=== PATIENT | male | born 1980 | race African-American/Black ===

== ENCOUNTER 2016-12-17 16:23 | Emergency (ER) | payer OTHER ==
[~2016-12-17] VITALS: Ht 182.9 cm; Wt 91.6 kg
--- NOTE | 2016-12-17 17:09 | ED GI/GU/ABDOMINAL COMPLAINT ---
History of Present Illness General Chief Complaint: General Adult Stated Complaint: ?SICKLE CELL CRISIS Source: patient, old records Exam Limitations: no limitations Vital Signs & Intake/Output Vital Signs & Intake/Output Vital Signs Date Time Temp Pulse Resp B/P B/P Pulse O2 O2 Flow FiO2 Mean Ox Delivery Rate 12/17 2110 88 22 114/58 98 Room Air 12/17 1859 88 18 124/73 98 Room Air 12/17 1634 98.8 104 18 129/75 97 Room Air Allergies Coded Allergies: No Known Allergies (12/17/16) Reconcile Medications Oxycodone HCl (Oxycodone HCl ER) 10 MG TAB.ER.12H 1 TAB PO BID PAIN (Reported ) Oxycodone HCl 30 MG TABLET 1 TAB PO BID sickle cell Triage Note: PT STATES HE IS HAVING A SICKLE CELL CRISIS WITH BACK PAIN AND STATES HE IS HAVING ABD PAIN THINKS HIS SPLEEN IS ENLARGED. PT STATES HE RAN OUT OF HIS PAIN MEDS AND HE IS USING A SAALON PATCH. Triage Nurses Notes Reviewed? yes Onset: Gradual Duration: minute(s): (`), day(s): (3-4), constant Timing: recent history Quality/Severity: aching, fullness, moderate, sharpness Severity Numbers: 9 Location: left flank, left lower quadrant, left upper quadrant Radiation: no radiation Activities at Onset: none Prior Abdominal Problems: similar symptoms No Modifying Factors: none Associated Symptoms: denies HPI: Is a 36-year-old male with history of sickle cell disease, diabetes hypertension high cholesterol recently moved here from [place] presents complaining of left flank and left-sided abdominal pain for the past 3-4 days. The patient states that this feels similar to a sickle cell crisis in the past. He recently ran out of his pain medication 4 days ago he was on oxycodone 30 mg. He has not sought up a primary care physician or human capital manager urine [place]. No recent fall or trauma. He denies any nausea vomiting diarrhea no urinary symptoms. No fever no chills no chest pain or shortness of breath cough or hemoptysis. He has not taken anything for pain today. (AURELIO VERMA,LUCAS) Past History Travel History Traveled to [place] past 21 day No Medical History Any Pertinent Medical History? see below for history Cardiovascular: hypertension, hyperlipidemia Endocrine: diabetes Blood Disorders: sickle cell disease Surgical History Surgical History: none Psychosocial History What is your primary language Serbian Tobacco Use: Never used ETOH Use: denies use Illicit Drug Use: denies illicit drug use Family History Hx Contributory? No (LUCAS LANDA) Review of Systems Review of Systems Constitutional: Reports: see HPI. All Other Systems: Reviewed and Negative Comments Review of systems: See HPI, All other systems negative. Constitutional, no chills no fever, no malaise HEENT: No visual changes no sore throat no congestion, Cardiovascular: No chest pain , no palpitation Skin: no rashes, no change in skin Respiratory: No dyspnea no cough no sputum no hemoptysis GI: No nausea no vomiting, no diarrhea, no bloating/constipation : No dysuria No hematuria, no frequency, no discharge Muscle skeletal: No joint pain, no joint swelling, back pain, no neck pain, Neurologic: No numbness no headache Psych: No stress Heme/endocrine: No bruising Immunology: No lymphadenopathy (LUCAS LANDA) Physical Exam Physical Exam General Appearance: well developed/nourished, no apparent distress, alert, awake Gastrointestinal: soft Comments: Well-developed well-nourished person in no acute distress HEENT: Normal EENT exam; PERRL, EOMI, HEAD is atraumatic. moist mucous membranes. Neck: Supple, no lymphadenopathy, normal range of motion without pain or tenderness Back: Nontender, no CVA tenderness. Full range of motion Cardiovascular: Regular rate and rhythms no murmurs rubs Respiratory: Chest nontender.There were no bony deformities, no asymmetry. No respiratory distress. Patient speaking in full complete sentences. Breath sounds clear to auscultation bilaterally: NO W/R/R Abdomen: Soft, nontender nondistended, no appreciable organomegaly. Normal bowel sounds. No rebound/guarding, no palpable splenomegaly Extremity: No edema, full range of motion of extremities, normal and equal pulses bilaterally, 5 out of 5 strength noted to bilateral upper and lower extremities Neuro: Alert oriented x3, motor sensory normal. There were no obvious focal neurologic abnormalities. Skin: No appreciable rash on exposed skin, skin is warm and dry. Psych: Mood and affect is normal, memory and judgment is normal. Core Measures ACS in differential dx? No Severe Sepsis Present: No Septic Shock Present: No (LUCAS LANDA) Progress Differential Diagnosis: AAA, biliary colic, bowel obstruction, colon cancer, cholecystitis, diverticulitis, gastritis, hepatitis, pancreatitis, PUD/GERD, SBO , ureterolithiasis, sickle cell crisis, electrolyte abnoramlity, splenic infarction, , acute chest syndrome Plan of Care: Orders Procedure Date/time Status RETICULOCYTE COUNT 12/18 1707 Complete COMPREHENSIVE METABOLIC PANEL 12/18 1707 Complete CBC WITHOUT DIFFERENTIAL 12/18 1707 Complete Laboratory Tests 12/17/16 1737: Anion Gap 14, Estimated GFR > 60, BUN/Creatinine Ratio 12.5, Glucose 89, Calcium 10.0, Total Bilirubin 1.9 H, AST 50, ALT 60, Alkaline Phosphatase 76, Total Protein 7.7, Albumin 4.2, Globulin 3.5, Albumin/Globulin Ratio 1.2, CBC w Diff NO MAN DIFF REQ, RBC 3.65 L, MCV 74.7 L, MCH 24.1 L, RDW 20.4 H, MPV 8.9, Gran % 65.7, Lymphocytes % 23.2, Monocytes % 3.9, Eosinophils % 4.8, Basophils % 2.4 H, Absolute Granulocytes 5.7, Absolute Lymphocytes 2.0, Absolute Monocytes 0.3, Absolute Eosinophils 0.4, Absolute Basophils 0.2, PUBS MCHC 32.2 L, Retic Count 3.52 H Labs ordered old records reviewed patient medicated with Dilaudid 1 mg IV. CAT scan ordered. 12/17/2016 8:48:38 PM repeat evaluation patient is continuing to have pain Dilaudid 1 oral 30 IV ordered Patient with persistent pain however slightly improve morphine 4 mg IV ordered case discussed with Dr. ozuna 12/17/2016 8:48:58 PM I had a long discussion with the patient regarding all of his CAT scan findings lab results. Patient states he is aware of the findings regarding his hips however the bone infarction writings are new. Patient is also aware of the splenic enlargement and chronic infarctions. He moved here 3 weeks ago. I discussed with the patient at the time that I believe he requires need for transfer to [place] for IV pain control. The patient is refusing this at this time like to go home at a long discussion with him that if the symptoms persist return immediately, prescription for his oxycodone was provided I answered all his questions he is scheduled to follow-up his primary care physician on Wednesday however he was provided with information for the [facility] to call tomorrow. The patient has no chest pain no shortness of breath, case d/w dr ozuna who agrees with plan (AURELIO VERMA,LUCAS) Diagnostic Imaging: Viewed by Me: CT Scan. Discussed w/RAD: CT Scan. Radiology Impression: PATIENT: HODA NÚÑEZ PRESENT AGE: 36 PATIENT ACCOUNT NO: [id number] : 82 LOCATION: [facility] ORDERING PHYSICIAN: LUCAS VERMA SERVICE DATE: 12/17/16 EXAM TYPE: CAT - CT ABD & PELVIS W IV CONTRAST EXAMINATION: CT ABDOMEN AND PELVIS WITH CONTRAST CLINICAL INFORMATION: 36-year-old male patient with sickle cell anemia presents with left lower quadrant and left flank pain. COMPARISON: None available. TECHNIQUE: Multidetector volumetric imaging was performed of the abdomen and pelvis before and after the IV administration of 95 mL of Optiray 320 intravenous contrast. Sagittal and coronal reformatted images were obtained on the technologist's workstation. DLP: 440 mGy-cm FINDINGS: Loader Technician view demonstrates dilatation of the stomach. There is no intestinal obstruction. 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 LUNG BASES: Mild dependent atelectasis is noted in both lower lobes. The heart is enlarged. There is no pleural effusion. LIVER, GALLBLADDER, AND BILIARY TREE: Normal. PANCREAS: Unremarkable. SPLEEN: The spleen is abnormally enlarged measuring 17 cm in oblique diameter. Small peripheral subacute infarcts are present and there are numerous calcified foci throughout the spleen attributed to old infarcts. 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 ADRENAL GLANDS: Unremarkable. KIDNEYS AND URETERS: The kidneys are normal in size, shape , and attenuation. No hydronephrosis, hydroureter, or calculi seen. No perinephric stranding. BLADDER: Unremarkable. GASTROINTESTINAL TRACT: The stomach is distended by fluid. The small intestine is normal. There are scattered diverticula the left colon but no diverticulitis. The appendix is not well localized but there are no inflammatory changes in the right flank or right lower quadrant. ABDOMINAL WALL: No significant hernia is appreciated. A small fat-containing vocal hernia is seen. LYMPH NODES: Normal. VASCULAR: Unremarkable. PELVIC VISCERA: Unremarkable. OSSEOUS STRUCTURES: As mentioned above, there is early bilateral avascular necrosis of the femoral heads. Old bone infarcts are seen in the proximal shafts of both femurs. Patchy sclerotic regions are located in L1 and L5 as well as lower thoracic vertebral bodies, specifically T9 and T7 due to medullary infarcts. There is mild endplate softening of the lower lumbar vertebral bodies. (H shape or early "[place]age log" morphology). IMPRESSION: 1. 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 2. Heart is enlarged due to primary disease 3. Early AVN of both femoral heads. 4. Multiple sites of bone infarctions as described. DICTATED BY: JOHN PAL MD DATE/TIME DICTATED:12/17/161858 ASSEMBLER CAMPER: JORDAN DATE/TIME TRANSCRIBED:12/17/161858 CONFIDENTIAL, DO NOT COPY WITHOUT APPROPRIATE AUTHORIZATION. <Electronically signed in Other Vendor System> SIGNED BY: JOHN PAL MD 12/17/162028 Initial ED EKG: none (LUCAS LANDA) Departure Departure Time of Disposition: 2043 Disposition: HOME OR SELF CARE Condition: Stable Clinical Impression Primary Impression: Sickle cell crisis Secondary Impressions: AVN (avascular necrosis of bone), Bone infarction, Spleen enlarged, Splenic infarction Referrals: CHRIS ÁLVAREZ DO (PCP/Family) Additional Instructions: Follow-up with [facility]: [phone] as well your primary care whom you're supposed to see on Wednesday.. oxycodone as directed. This was sent to [facility]. As discussed return with any concerns at any time sooner if you worsening pain despite medication as you were offered to be transferred to [place] this evening for admission for pain control Departure Forms: Customer Survey General Discharge Information Prescriptions: Current Visit Scripts Oxycodone HCl 1 TAB PO BID #10 TAB (LUCAS LANDA) PA/FAMILY MEDICINE CHAIR Co-Sign Statement Statement: ED Attending supervision documentation- [] I saw and evaluated the patient. I have also reviewed all the pertinent lab results and diagnostic results. I agree with the findings and the plan of care as documented in the PA's/FAMILY MEDICINE CHAIR's documentation. x I have reviewed the ED Record and agree with the PA's/FAMILY MEDICINE CHAIR's documentation. [] Additions or exceptions (if any) to the PAs/FAMILY MEDICINE CHAIR's note and plan are summarized below: [] (EDGARDO VICTOR,MARVIN)
[2016-12-17] MEDS ORDERED: OXYCODONE HCL E10 MG PO (17:24)
[2016-12-17 17:46] LABS: ABSOLUTE BASOPHIL COUNT 0.2 /CUMM (0.0-0.2); ABSOLUTE EOSINOPHIL COUNT 0.4 /CUMM (0.0-0.7); ABSOLUTE GRANULOCYTE CT 5.7 /CUMM (1.4-6.5); ABSOLUTE MONOCYTE COUNT 0.3 /CUMM (0.10-0.60); BASOPHIL % 2.4 % (0.0-2.0); EOSINOPHIL % 4.8 % (0-5); GRANULOCYTE % 65.7 % (42.2-75.2); HEMATOCRIT 27.2 % (42-52); MEAN CORPUSCULAR HGB 24.1 PG (27.0-31.0); MEAN CORPUSCULAR HGB CONC 32.2 G/DL (33.0-37.0); MEAN CORPUSCULAR VOLUME 74.7 FL (80.0-94.0); MEAN PLATELET VOLUME 8.9 FL (7.4-10.4); PLATELET COUNT 147 /CUMM (130-400); RBC DISTRIBUTION WIDTH 20.4 % (11.5-14.5); RED BLOOD CELL CT 3.65 /CUMM (4.70-6.10); WHITE BLOOD CELL COUNT 8.7 /CUMM (4.8-10.8)
--- NOTE | 2016-12-17 20:29 | CT SCAN REPORT ---
EXAMINATION: CT ABDOMEN AND PELVIS WITH CONTRAST CLINICAL INFORMATION: 36-year-old male patient with sickle cell anemia presents with left lower quadrant and left flank pain. COMPARISON: None available. TECHNIQUE: Multidetector volumetric imaging was performed of the abdomen and pelvis before and after the IV administration of 95 mL of Optiray 320 intravenous contrast. Sagittal and coronal reformatted images were obtained on the technologist's workstation. DLP: 440 mGy-cm FINDINGS: Correctional Supervising Cook view demonstrates dilatation of the stomach. There is no intestinal obstruction. 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 LUNG BASES: Mild dependent atelectasis is noted in both lower lobes. The heart is enlarged. There is no pleural effusion. LIVER, GALLBLADDER, AND BILIARY TREE: Normal. PANCREAS: Unremarkable. SPLEEN: The spleen is abnormally enlarged measuring 17 cm in oblique diameter. Small peripheral subacute infarcts are present and there are numerous calcified foci throughout the spleen attributed to old infarcts. 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 ADRENAL GLANDS: Unremarkable. KIDNEYS AND URETERS: The kidneys are normal in size, shape, and attenuation. No hydronephrosis, hydroureter, or calculi seen. No perinephric stranding. BLADDER: Unremarkable. GASTROINTESTINAL TRACT: The stomach is distended by fluid. The small intestine is normal. There are scattered diverticula the left colon but no diverticulitis. The appendix is not well localized but there are no inflammatory changes in the right flank or right lower quadrant. ABDOMINAL WALL: No significant hernia is appreciated. A small fat-containing vocal hernia is seen. LYMPH NODES: Normal. VASCULAR: Unremarkable. PELVIC VISCERA: Unremarkable. OSSEOUS STRUCTURES: As mentioned above, there is early bilateral avascular necrosis of the femoral heads. Old bone infarcts are seen in the proximal shafts of both femurs. Patchy sclerotic regions are located in L1 and L5 as well as lower thoracic vertebral bodies, specifically T9 and T7 due to medullary infarcts. There is mild endplate softening of the lower lumbar vertebral bodies. (H shape or early "[place] log" morphology). IMPRESSION: 1. 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 2. Heart is enlarged due to primary disease 3. Early AVN of both femoral heads. 4. Multiple sites of bone infarctions as described.
[2016-12-17] MEDS ORDERED: OXYCODONE HCL30 M1 PO (20:45)
[2016-12-17 21:10] VITALS: BP 114/58
== END 2016-12-17 21:16 ==
LOC: ERH 16:23
PROVIDERS: Physician Assistant Medical
DX: D57.00 Hb-SS disease with crisis, unspecified (principal); M87.9 Osteonecrosis, unspecified; R16.1 Splenomegaly, not elsewhere classified; D73.5 Infarction of spleen
CPT/HCPCS: 74177; 96361; 96374; 96375; 96376; J1885

== ENCOUNTER 2017-02-15 17:54 | Inpatient (IN) | payer OTHER ==
[~2017-02-15] VITALS: Ht 182.9 cm; Wt 93.9 kg
[~2017-02-15 17:54] MED LIST: OXYCODONE HCL E10 MG PO; OXYCODONE HCL30 M1 PO
--- NOTE | 2017-02-15 18:03 | NUR ---
PT TO ED FOR SICKLE CELL PAIN STARTING LAST PM. PT RPEORTS BILATERAL ARM PAIN, BACK PAIN AND CHEST PAIN. DENIES SOB. DENIES FEVERS.
--- NOTE | 2017-02-15 18:10 | ED GENERAL ADULT ---
See Addendum History of Present Illness General Chief Complaint: General Adult Stated Complaint: SICKLE CELL CRISIS Source: patient, old records Exam Limitations: no limitations Vital Signs & Intake/Output Vital Signs & Intake/Output Vital Signs Date Time Temp Pulse Resp B/P B/P Pulse O2 O2 Flow FiO2 Mean Ox Delivery Rate 02/15 1759 99.3 94 22 124/73 98 Room Air Allergies Coded Allergies: No Known Allergies (12/17/16) Reconcile Medications Oxycodone HCl (Oxycodone HCl ER) 10 MG TAB.ER.12H 1 TAB PO BID PAIN (Reported ) Oxycodone HCl 30 MG TABLET 1 TAB PO BID sickle cell Triage Note: PT TO ED FOR SICKLE CELL PAIN STARTING LAST PM. PT RPEORTS BILATERAL ARM PAIN, BACK PAIN AND CHEST PAIN. DENIES SOB. DENIES FEVERS. Triage Nurses Notes Reviewed? yes Onset: Abrupt Duration: day(s): (2), constant Timing: recent history Injury Environment: home Severity: severe Severity Numbers: 10 Modifying Factors: Worsens With: other (movement). Associated Symptoms: denies HPI: 36yo male with hx of sickle cell disease presents to ED c/o sickle cell pain. He states pain began late last night, described as severe and intermittent. Pain is located at right wrist, low back, left epigastric area and left sternal boarder. Epigastic pain radiated to left sternal boarder today at noon. Chest pain is described as throbbing and aching and is intermittent, nonpleuritic. He is also c/o palpitations. MSK pain is described as sharp and stabbing. He states his last pain crisis was in November and he was treated in the [place] ED at that time. He denies dyspnea, cough, nausea, vomiting, changes in bowel movements, urinary symptoms, recent illness, fevers, chills. (LUCAS LANDA) Past History Travel History Traveled to [place] past 21 day No Medical History Any Pertinent Medical History? see below for history Neurological: NONE EENT: NONE Cardiovascular: hypertension, hyperlipidemia Respiratory: NONE Gastrointestinal: NONE Hepatic: NONE Renal: NONE Musculoskeletal: NONE Psychiatric: NONE Endocrine: diabetes Blood Disorders: sickle cell disease Surgical History Surgical History: none Psychosocial History What is your primary language Vietnamese Tobacco Use: Current Not Daily Family History Hx Contributory? No (LUCAS LANDA) Review of Systems Review of Systems Constitutional: Reports: no symptoms. All Other Systems: Reviewed and Negative Comments Review of systems: See HPI, All other systems negative. Constitutional, no chills no fever, no malaise no weight loss HEENT: No visual changes no sore throat Cardiovascular: +chest pain , +palpitation Skin: no rashes, no change in skin Respiratory: No dyspnea no cough no sputum no hemoptysis GI: No nausea no vomiting, no diarrhea : No dysuria No hematuria, no frequency Muscle skeletal: +joint pain, no joint swelling,+back pain, no neck pain, Neurologic: No numbness no confusion, no headache Psych: No stress no depression,. Heme/endocrine: No bruising no bleeding Immunology: No lymphadenopathy (LUCAS LANDA) Physical Exam Physical Exam General Appearance: well developed/nourished, no apparent distress, alert, awake Comments: Well-developed well-nourished person in no acute distress HEENT: Normal EENT exam;EOMI. HEAD is atraumatic. moist mucous membranes. Neck: Supple, normal range of motion without pain or tenderness Back: Tenderness throughout. Full range of motion Cardiovascular: Regular rate and rhythms no murmurs rubs or gallops, normal JVP Respiratory: Tenderness at sternum and left sternal boarder.There were no bony deformities, no asymmetry. No respiratory distress. Patient speaking in full complete sentences. Breath sounds clear to auscultation bilaterally: NO W/R/R Abdomen: Soft, epigastric tenderness, nondistended, no appreciable organomegaly. Normal bowel sounds. No rebound/guarding, No appreciable enlargement of the abdominal aorta, No ascites. Extremity: No edema, full range of motion of extremities Neuro: Alert oriented x3, motor sensory normal, There were no obvious focal neurologic abnormalities. Skin: No appreciable rash on exposed skin, skin is warm and dry. Psych: Mood and affect is normal, memory and judgment is normal. Core Measures ACS in differential dx? Yes CVA/TIA Diagnosis: No Severe Sepsis Present: No Septic Shock Present: No (LUCAS LANDA) Progress Differential Diagnoses I considered the following diagnoses in my evaluation of the patient: [ACS, sickle cell crisis, acute chest pain syndrome, ards, PE, extremity injury, chostocondritis, pericarditis, pancreatitis] Plan of Care: Orders Procedure Date/time Status Consistent Carbohydrate 02/16 B Active Misc Message 02/15 2035 Active ED Holding Orders 02/15 2035 Active Admit to inpatient 02/15 2035 Active Vital Signs 02/15 2035 Active Code Status 02/15 2035 Active URINE DRUGS OF ABUSE 02/15 2033 Active URINALYSIS 02/15 2033 Active Patient Data 02/15 2006 Active Telemetry/Pick Up Operator 02/16 1952 Active Add-on Test (ER Only) 02/15 1831 Active EKG 02/15 1807 Active TROPONIN LEVEL 02/15 1802 Complete RETICULOCYTE COUNT 02/15 1802 Complete COMPREHENSIVE METABOLIC PANEL 02/15 1802 Complete CBC WITHOUT DIFFERENTIAL 02/15 1802 Complete Current Medications Sig/Godfrey Start time Last Medication Dose Stop Time Status Admin Sodium Chloride 1,000 ML Q6H 02/15 2030 AC (Normal Saline 0.9%) 02/16 0829 Laboratory Tests 02/15/17 1834: Anion Gap 9, Estimated GFR > 60, BUN/Creatinine Ratio 13.8, Glucose 114 H, Calcium 9.4, Total Bilirubin 1.4 H, AST 49, ALT 48, Alkaline Phosphatase 70, Troponin I < 0.01, Total Protein 8.0, Albumin 4.5, Globulin 3.5, Albumin/ Globulin Ratio 1.3, CBC w Diff MAN DIFF ORDERED, RBC 4.29 L, MCV 74.2 L, MCH 24.8 L, RDW 17.5 H, MPV 9.0, Segmented Neutrophils 50, Lymphocytes 42, Monocytes 5, Eosinophils 3, Nucleated RBCs 1 H, Platelet Estimate ADEQUATE, Polychromasia 1+, Anisocytosis 1+, Microcytic Cells 1+, PUBS MCHC 33.4, Retic Count 3.43 H Patient is Perc negative, he is in no acute respiratory distress. His vital signs are stable. pt reports minimal improvement with first dilaudid, additional dilaudid 1mg iv ordered 1944 pt reports slightg imporvement in pain, given history, no heme follow up, caes d/w dr cho who evaluated with the pt and agrees with plan and need for admission case d/w dr kamara will admit (LUCAS LANDA) Diagnostic Imaging: Viewed by Me: Radiology Read. Discussed w/RAD: Radiology Read. Initial ED EKG: normal axis, normal intervals, normal p-waves, sinus rhythm at 87bpm (LUCAS LANDA) Comments: 02/15/2017 8:35:23 PM patient's case discussed with Dr. Kamara. She feels that given the patient's unremarkable EKG and normal troponin and description of that the patient does not seem to require telemetry admission/monitoring. (RUSTY VICTOR,YOSHI Valerio) Departure Departure Time of Disposition: 1999 Disposition: STILL A PATIENT Condition: Stable Clinical Impression Primary Impression: Sickle cell crisis Secondary Impressions: Chest pain Referrals: UNKNOWN (PCP/Family) Departure Forms: Customer Survey General Discharge Information Admission Note Spoke With: CODI KAMARA [facility] Documentation of Exam: Documentation of any treatments & extenuating circumstances including Concerns Regarding Discharge (functional status, medication knowledge or non-compliance, living conditions, etc.) that warrant an admission rather than observation: [ history of sickle cell disease, has not established care with hemetology, recently diagnosed diabetic, current sickle cell crisis with pain not currently controlled with IV narcotics, reproducible chest pain which is unusual for patient's previous episodes, premature discharge would be medically harmful.] (LUCAS LANDA) Critical Care Note Critical Care Note Critical Care Time: non-applicable (LUCAS LANDA)
--- NOTE | 2017-02-15 18:38 | NUR ---
LABS DRAWN AND SENT BY THIS MST. BLUE,SST,LAVX2
[2017-02-15 18:47] LABS: HEMATOCRIT 31.8 % (42-52); MEAN CORPUSCULAR HGB 24.8 PG (27.0-31.0); MEAN CORPUSCULAR HGB CONC 33.4 G/DL (33.0-37.0); MEAN CORPUSCULAR VOLUME 74.2 FL (80.0-94.0); PLATELET COUNT 122 /CUMM (130-400); RBC DISTRIBUTION WIDTH 17.5 % (11.5-14.5); RED BLOOD CELL CT 4.29 /CUMM (4.70-6.10); WHITE BLOOD CELL COUNT 7.5 /CUMM (4.8-10.8)
--- NOTE | 2017-02-15 19:08 | NUR ---
LINE EST #20 TO LF. MEDICATED PER EMAR.
--- NOTE | 2017-02-15 19:40 | NUR ---
PT MEDICATED WITH DILAUDID PER EMAR.
--- NOTE | 2017-02-15 19:59 | NUR ---
PT TO AND FROM RADIOLOGY VIA STRETCHER.
--- NOTE | 2017-02-15 20:26 | RADIOLOGY REPORT ---
EXAMINATION: XR CHEST CLINICAL INFORMATION: Chest pain, history of sickle cell. COMPARISON: Scanogram from abdominal and pelvis CT 12/17/2016. TECHNIQUE: 2 views of the chest were obtained. FINDINGS: The cardiomediastinal silhouette is unremarkable. Subtle elevation of the left hemidiaphragm is stable appearing. The lungs and pleural spaces appear clear without evidence of congestion, consolidation, or significant appearing effusion or atelectasis. There is no evidence of pneumothorax or pulmonary edema. Included osseous structures appear largely unremarkable. IMPRESSION: No evidence of an acute intrathoracic process.
--- NOTE | 2017-02-15 20:28 | History & Physical ---
ISI VICTOR,[facility] 02/15/172026: General Information and HPI MD Statement: I have seen and personally examined HODA WRAY and documented this H&P. The patient is a 36 year old M who presented with a patient stated chief complaint of [chest pain]. Source of Information: patient Exam Limitations: poor historian History of Present Illness: Mr. Wray is a 36 year old male with past medical history significant for sickle cell disease, diabetes mellitus, hyperlipidemia who presented to ED with chief complaint of left chest, right arm and lower back pain. Patient reported that since yesterday he started to have right arm pain, chest pain not radiating , low back pain, pain is consistent in nature, 20/10 associated with palpitation. Patient denied any shortness of breath, dizziness, blurred vision, abdominal pain, nausea or vomiting, hands swelling, recent illness or history of sick contact. Patient attributed his sickle cell crisis to dehydration and life stressor. Last crisis was in November 2016 with similar presentation that was treated with IV fluid and pain medication, patient was transfused during that attack. Last hospitalization for sickle cell crisis was last year in [place]. Patient was recently moved from [place] in November 2016, he is to follow up with spinning lathe operator over there. Patient reported multiple painful episodes since with average of 2-3 per year. New onset of diabetes in November 2016, taking metformin 500 mg daily, not following any maintenance data analyst. Patient reported quit smoking 5 days ago, used to smoke since age 16 6-7 cigarettes per day. No alcohol consumption, denied drugs. Allergies/Medications Allergies: Coded Allergies: No Known Allergies (12/17/16) Past History Travel History Traveled to [place] past 21 day No Medical History Neurological: NONE EENT: NONE Cardiovascular: hypertension, hyperlipidemia Respiratory: NONE Gastrointestinal: NONE Hepatic: NONE Renal: NONE Musculoskeletal: NONE Psychiatric: NONE Endocrine: diabetes Blood Disorders: sickle cell disease Surgical History Surgical History: none Past Family/Social History Psychosocial History Primary Language: Yoruba Smoking Status: Former Smoker ETOH Use: denies use Illicit Drug Use: denies illicit drug use Employment History Employment Employed Profession/Employer cdl flatbed truck driver Review of Systems Review of Systems Constitutional: Reports: see HPI. Exam & Diagnostic Data Last 24 Hrs of Vital Signs/I&O Vital Signs Date Time Temp Pulse Resp B/P B/P Pulse O2 O2 Flow FiO2 Mean Ox Delivery Rate 06/19 2106 99.0 88 20 118/72 98 Room Air Room Air 02/15 1759 99.3 94 22 124/73 98 Room Air Physical Exam General Appearance Alert, Oriented X3, Cooperative, No Acute Distress Skin No Rashes, No Breakdown, No Significant Lesion Skin Temp/Moisture Exam: Warm/Dry HEENT Atraumatic, PERRLA, EOMI, Mucous Membr. moist/pink Neck Supple, No JVD Cardiovascular Regular Rate, Normal S1, Normal S2, No Murmurs, left chest tenderness to palpation Lungs Normal Air Movement, fine crackles at left base Abdomen Normal Bowel Sounds, Soft, No Tenderness, No Hepatospenomegaly, No Masses Neurological Normal Gait, Normal Speech, Strength at 5/5 X4 Ext, Normal Tone, Sensation Intact, Cranial Nerves 3-12 NL, Reflexes 2+ Extremities No Clubbing, No Cyanosis, No Edema, Normal Pulses, No Tenderness/ Swelling Assessment/Plan Assessment: Mr. Wray is a 36 year old male with past medical history significant for sickle cell disease, diabetes mellitus, hyperlipidemia who presented to ED with chief complaint of left chest, right arm and lower back pain. On admission Vital signs temperature 99.3, pulse 94 regular, blood pressure 124/73, respiratory 22 saturating 98% room air Labs WBC 7.5, H&H 10.6/31.8, platelet 122, reticulocyte count 3.43, absolute reticulocyte count 2.6, sodium 139, potassium 4.1, BUN/creatinine 18/1.3, glucose 114, LFT WNL Chest x-ray did not reveal evidence of acute intrathoracic process. EKG sinus rhythm, rate 76, QTC 491 Problem list #Sickle cell vaso-occlusive painful episode #Diabetes mellitus #Hyperlipidemia #Sickle cell crisis -In ED, patient was given 1 bolus of normal saline, IV fluid was kept pending at 150 mL per in addition to pain management -Continue IV fluid normal saline running at 150 mL/h -Optimal pain management Dilaudid 1 mg every 6 for severe pain, OxyContin 5 mg every 6 for moderate pain -We'll obtain hematology consultation -UA and urine tox -Troponin is negative, EKG didn't show any acute changes, would repeat troponin and EKG to rule out acute chest syndrome -Continue to monitor H&H and kidney function -Continue home dose folic acid and vitamin D #Diabetes mellitus -Diabetic diet -Accu-Chek and NovoLog sliding scale before meals and bedtime -We'll confirm medication from [facility] [place] #Hyperlipidemia -Atorvastatin 20 mg daily -We will confirm medication from [facility] Code full DVT prophylaxis heparin subcutaneous Diet CC3 As Ranked By This Provider Problem List: 1. Sickle cell crisis Core Measures/Miscellaneous Acute Coronary Syndrome ACS Diagnosis: No Cerebrovascular Accident CVA/TIA Diagnosis: No Congestive Heart Failure CHF Diagnosis: No VTE (View Protocol) VTE Risk Factors: Acute medical illness [facility] prophylaxis d/t: No contraindications No VTE Pharm Prophylaxis d/t: No contraindications VTE Diagnosis: No VTE Type: NONE VTE Confirmed by (Test): NONE Sepsis (View Protocol) Severe Sepsis Present: No Septic Shock Septic Shock Present: No Miscellaneous Documentation Attending Case Discussed With: DEXTER KAMARA MDReinier Primary Care Physician: UNKNOWN Patient sees these Specialists Hematology in [place] Level of Patient Care: General Medicine LATISHA EARLY MD 02/15/172033: General Information and HPI Allergies/Medications Home Med list Cholecalciferol (Vitamin D3) (Vitamin D) 1,000 UNIT TABLET 1 TAB PO DAILY SUPPLEMENT (Reported) Folic Acid 1 MG TABLET 1 TAB PO DAILY SUPPLEMENT (Reported) Oxycodone HCl 30 MG TABLET 1 TAB PO AD PRN PAIN (Reported) Resident Review Statement Resident Statement: examined this patient, discussed with leadership program intern, agreed with leadership program intern Other Findings: 36 YO M with a PMH of Sickle cell disease, newly diagnosed diabetes on metformin , HLD, and current smoker who presents with generalized body pains. Pain is stabbing, severe and located in the Rt wrist, left sternal border, left epigastrum and radiates to his back. he feels the triger for this episode is likely dehydration and life stress. He denies any URI, urinary symptoms, fever, N,V or D. He recently moved to [place] in November 2016 but says he sees a Patent Counsel and PCP in [place]. 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 He was also diagnosed with T2 DM in november 2016 and was started on metformin and possbly ?glipizide. He takes only Folic Acid and Oxycodone for his SCD. He was diagnosed with SCD as a child and has a strong FH of SCD and diabetes. He reports that he is on a statin medication for hyperlipidemia but does not rember the name of the medication. It seems patient may not be particulary complaint with his medications due to his changing hx with the different providers who interview him. Vitals stable Labs-H&H 10.6/31.8, WBC 7.5, Plt 122. Creat 1.3, Gluc 114, k 4.1, Na 139, UA- Pending, Utox-pending Normal CXR, EKG; NSR rate 76, Trop x 1 neg O/E AAOx 3, RRR, chest, upper abd and left flank tender to palpation, left basilar crackles, normal bowel sounds, no pedal edema Problem List 1. Sickle cell crisis with acute chest pain syndrome 2. MICHELE 3. Type 2 DM 4. HLD 5. Chronic Anemia Plan Admit to GM IV pain medication for pain control-IV dilaudid, PO oxycondone and Po tylenol IVF hydration 150cc/hr Check HbA1C Hold Metformin/?glypizide Give Insulin SS Fingerstick glucose TIDAC/HS Trend EKG/Trop Obtain hematology consult Continue his home Folate and Vit D. Add MVI H&H stable-Repeat CBC in am-Monitor for dropping H&H and transfuse if needed Repeat CBC in AM Please confirm patient's medications with his [facility] in [place]. Restart his statin once confirmed Diabetic diet DVT ppx with SC heparin and Alps-I would give Sc heparin due to pt's high risk for thromboembolism. However, patient has low platelets; f/u H&H in am and re- evalaute need to continue sc heparin. ANH VICTOR, [facility] 02/15/17 8943: Attending MD Review Statement Attending Statement Attending MD Statement: examined this patient, discuss w/resident/PA/CHEMISTRY LAB INSTRUCTOR, agreed w/resident/PA/CHEMISTRY LAB INSTRUCTOR Attending Assessment/Plan: 36 yo M smoker (quit 4 days ago) with h/o sickle cell disease, HLD, newly diagnosed T2DM, pw right arm pain, left sided intermittent chest pain radiating to the back, right hip and low back pain for the past 24 hours. 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 He used to follow PCP Dr. Andrew Vaz at [place] but has never seen a Patent Counsel. He is only on folic acid but is not on hydroxyurea which he states is because of the potential fertility side effects. He was admitted to a hospital in [facility] (early November) for SC crisis, where he received blood transfusion (Hb 5.0). He ran out of his oxycodone and was seen in [place] ER on December [address] for sick[address] crisis. 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 Trigger being dehydration and stress. Family h/o sickle cell trait in both parents, SCD in his brother. VSS. Labs: H/H 10.6/31.8, microcytic anemia, Plt 122, retic count 3.43, creat 1.3, T. Bili 1.4, trop neg. UA clear. Utox neg except for opiates which he received in ER. CXR: no acute process. EKG: SR, Qtc 419. 1. Sickle cell vaso-occlusive pain crisis. No evidence of acute chest pain syndrome (CXR negative, respiratory status is stable). GM admit, aggressive IV fluids and pain management with dilaudid. Serial EKG and troponin to rule out ACS. Provide O2 via nasal canula and incentive spirometry. No need for blood transfusion at this point. Consult Hematology in AM. Continue folic acid. Please provide PCP referral to the patient on discharge, so he can establish care at [place]. 2. T2DM. Accucheks, hold metformin and glipizide. Check HbA1c. Novolog SS. DVT ppx Hep SC (please follow platelet count in AM and decide on continuation of heparin products). Full code.
--- NOTE | 2017-02-15 21:04 | Admission Certification ---
Admission Certification Certification Statement - As attending physician, I certify that at the time of - admission, based on clinical presentation, severity of - symptoms, need for further diagnostic testing and - therapeutic interventions, and risk of adverse outcomes - without in-hospital treatment, in my clinical assessment, - this patient requires an acute hospital stay for a minimum - of two nights or longer. I have also considered psychsocial - factors such as support system, advanced age, financial - issues, cognitive issues, and failed out-patient treatments, - past re-admission history, safety of patient, and lack of - compliance as applicable. Specific rationale supporting this admission is: Sickle cell crisis.
--- NOTE | 2017-02-15 21:13 | NUR ---
HOUSE STAFF TO BEDSIDE FOR EVAL.
--- NOTE | 2017-02-15 21:13 | NUR ---
PT GOING TO ROOM 204-2
--- NOTE | 2017-02-15 21:15 | NUR ---
TOMMY KAMILLE TO CALL BACK FOR REPORT.
--- NOTE | 2017-02-15 21:27 | NUR ---
REPORT GIVEN TO TOMMY SIMENTAL. TRANSPORT BOOKED.
[2017-02-15] MEDS ORDERED: FOLIC ACID1 M1 PO (21:29)
[2017-02-15] MEDS ORDERED: VITAMIN D1000 UNIT PO (21:29)
[2017-02-15] MEDS ORDERED: OXYCODONE HCL30 M1 PO (21:29)
[2017-02-15 23:04] VITALS: BP 139/84
--- NOTE | 2017-02-15 23:21 | NUR ---
NURSE NOTE: PT CAME TO FLOOR AT 2230 FROM ED. REPORT RECEIVED FROM UMANG. STEVE, THERESE. VSS. COMPLAINING OF PAIN AND MEDICATED. PT NAUSEOUS AND VOMITTING OFFERED ANTIEMETIC AND DOES NOT WANT AT THIS TIME. WILL CONTINUE TO MONITOR.
[2017-02-16 06:30] VITALS: BP 106/76
--- NOTE | 2017-02-16 08:12 | PN- Housestaff ---
See Addendum Subjective Follow-up For: Sickle cell vasocclusive crisis Subjective: I saw and examined the patient today morning Reports difficulty sleeping overnight. Reports back pain 7 out of 10, improving since admission. Mild persistent pain in the neck right arm and right hip region. Otherwise no overnight issues. Fluids running at bedside @150 mL per hour Review of Systems Constitutional: Reports: see HPI. Objective Last 24 Hrs of Vital Signs/I&O Vital Signs Date Time Temp Pulse Resp B/P B/P Pulse O2 O2 Flow FiO2 Mean Ox Delivery Rate 02/16 0630 97.9 85 18 106/76 97 Room Air 02/15 2304 98.1 81 20 139/84 94 Room Air 02/15 2106 99.0 88 20 118/72 98 Room Air Room Air 02/15 1759 99.3 94 22 124/73 98 Room Air Intake & Output 02/16 1600 02/16 0800 02/16 0000 Intake Total 1800 1240 Output Total 650 350 Balance 1150 890 Intake, IV 1200 1000 Intake, Oral 600 240 Output, 250 Emesis Output, Urine 400 350 Patient 93.894 kg Weight Weight Reported by Patient Measurement Method Physical Exam General Appearance: Alert, Oriented X3, Cooperative, No Acute Distress Skin: No Rashes, mild allergic rashes over arms and body HEENT: Atraumatic, PERRLA, EOMI Neck: Supple Cardiovascular: Normal S1, Normal S2 Lungs: Clear to Auscultation, Normal Air Movement Abdomen: Normal Bowel Sounds, Soft, tenderness in the hypogastric region Neurological: Strength at 5/5 X4 Ext, Normal Tone, Sensation Intact, Cranial Nerves 3-12 NL Extremities: No Clubbing, No Cyanosis, No Edema Vascular: Normal Pulses, Pulses Symmetrical Current Medications: Current Medications Sig/Godfrey Start time Last Medication Dose Route Stop Time Status Admin Acetaminophen 650 MG Q6P PRN 02/15 2045 AC PO Acetaminophen/ 1 TAB Q6P PRN 02/15 2045 DC Hydrocodone Bitart PO Cholecalciferol 1,000 IU DAILY 02/16 1000 AC PO Enoxaparin Sodium 40 MG DAILY 02/15 2047 DC SC Folic Acid 1 MG DAILY 02/16 1000 AC PO Heparin Sodium 5,000 UNIT Q8 02/15 2200 AC 02/15 (Porcine) SC 2257 Hydromorphone HCl 1 MG Q4 HRS NEEDED PRN 02/16 0145 AC 02/16 IV 0608 Hydromorphone HCl 0 .STK-MED ONE 02/15 2045 DC .ROUTE Hydromorphone HCl 1 MG Q6P PRN 02/15 204 DC 02/15 IV 2256 Hydromorphone HCl 0.6 MG ONCE ONE 02/15 2030 DC 02/15 IV 02/15 Hydromorphone HCl 0 .STK-MED ONE 02/16 1940 DC .ROUTE Hydromorphone HCl 1 MG ONCE ONE 02/15 1930 DC 02/15 IV 02/15 1931 193 Hydromorphone HCl 0 .STK-MED ONE 02/15 190 DC .ROUTE Hydromorphone HCl 1 MG ONCE ONE 02/15 181 DC 02/15 IV 02/16 1816 185 Insulin Aspart 0 TIDAC 02/16 0800 AC SC Morphine Sulfate 0 .STK-MED ONE 02/15 2106 DC .ROUTE Multivitamins 1 TAB DAILY 02/16 1000 AC PO Ondansetron HCl 4 MG Q6P PRN 02/16 0145 AC 02/16 IV 0135 Ondansetron HCl 4 MG .STK-MED ONE 02/15 2252 DC IM 02/15 2253 Oxycodone HCl 20 MG Q8H 02/16 1200 AC PO Oxycodone HCl 30 MG Q8 02/16 0400 DC 02/16 PO 02/16 0401 0421 Oxycodone HCl 5 MG Q6P PRN 02/15 2230 AC 02/16 PO 0345 Polyethylene Glycol 17 GM AT BEDTIME 02/15 2200 AC PO Senna/Docusate Sodium 2 TAB AT BEDTIME 02/15 2200 AC PO Sodium Chloride 1,000 ML .Q6H40M 02/16 1800 CAN IV Sodium Chloride 1,000 ML Q6H 02/15 2030 AC 02/16 IV 02/16 0829 0345 Sodium Chloride 1,000 ML BOLUS ONE 02/15 181 DC 02/15 IV 02/15 1914 1908 Trimethobenzamide HCl 200 MG TIDPRN PRN 02/15 2300 DC 02/16 IM 0036 Last 24 Hrs of Lab/Tian Results Last 24 Hrs of Labs/Mics: Laboratory Tests 02/16/17 0615: Anion Gap 7, Estimated GFR > 60, BUN/Creatinine Ratio 14.0, CBC w Diff NO MAN DIFF REQ, RBC 3.98 L, MCV 75.8 L, MCH 23.8 L, RDW 17.9 H, MPV 8.9, Gran % 66.2, Lymphocytes % 26.8, Monocytes % 4.4, Eosinophils % 2.4, Basophils % 0.2, Absolute Granulocytes 5.4, Absolute Lymphocytes 2.2, Absolute Monocytes 0.4, Absolute Eosinophils 0.2, Absolute Basophils 0, PUBS MCHC 31.4 L 02/16/17 0010: Troponin I < 0.01 02/15/17 2231: Urine Opiates Screen 1311.00, Methadone Screen < 40, Barbiturate Screen < 60, Ur Phencyclidine Scrn < 6.00, Amphetamines Screen < 100, U Benzodiazepines Scrn < 85, Urine Cocaine Screen < 50, Urine Cannabis Screen < 5.00, Urine Color YEL, Urine Clarity CLEAR, Urine pH 6.0, Ur Specific [place] 1.015, Urine Protein NEG, Urine Ketones NEG, Urine Nitrite NEG, Urine Bilirubin NEG, Urine Urobilinogen 0.2, Ur Leukocyte Esterase NEG, Ur Microscopic EXAM NOT REQUIRED, Urine Hemoglobin NEG, Urine Glucose NEG 02/15/172057: Ref Lab Test Result Pending Assessment/Plan Assessment: Patient is a 36-year-old male with past medical history significant for recently diagnosed type II diabetes, sickle cell disease, hyperlipidemia, sickle cell crisis presented to ER with another episode of sickle cell vaso-occlusive crisis. 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 Sickle cell crisis 2. Bone infarction 3. AVN (avascular necrosis of bone) 4. Spleen enlarged 5. Splenic infarction Pain Ratin Pain Location: Right hip, low back pain, right arm chest, fingers Pain Goal: Pain 4 or less Pain Plan: Tylenol OxyContin Dilaudid Tomorrow's Labs & Rationales: CBC monitor H&H BEP to monitor creatinine
[2017-02-16 08:26] LABS: ABSOLUTE BASOPHIL COUNT 0 /CUMM (0.0-0.2); ABSOLUTE EOSINOPHIL COUNT 0.2 /CUMM (0.0-0.7); ABSOLUTE GRANULOCYTE CT 5.4 /CUMM (1.4-6.5); ABSOLUTE LYMPH COUNT 2.2 /CUMM (1.2-3.4); ABSOLUTE MONOCYTE COUNT 0.4 /CUMM (0.10-0.60); BASOPHIL % 0.2 % (0.0-2.0); EOSINOPHIL % 2.4 % (0-5); GRANULOCYTE % 66.2 % (42.2-75.2); HEMATOCRIT 30.1 % (42-52); MEAN CORPUSCULAR HGB 23.8 PG (27.0-31.0); MEAN CORPUSCULAR HGB CONC 31.4 G/DL (33.0-37.0); MEAN CORPUSCULAR VOLUME 75.8 FL (80.0-94.0); MEAN PLATELET VOLUME 8.9 FL (7.4-10.4); PLATELET COUNT 99 /CUMM (130-400); RBC DISTRIBUTION WIDTH 17.9 % (11.5-14.5); RED BLOOD CELL CT 3.98 /CUMM (4.70-6.10); WHITE BLOOD CELL COUNT 8.2 /CUMM (4.8-10.8)
--- NOTE | 2017-02-16 08:39 | Cons- Hematology ---
See Addendum General Information and HPI Consulting Request Date of Consult: 02/16/17 Requested By: ABHIJIT KAMARA MD Reason for Consult: Sickle cell crisis Source of Information: patient Exam Limitations: no limitations History of Present Illness: Mr. Wray is a 36-year-old male with history of sickle cell disease, HLD, DM, and tobacco usage who presented to the ED with chest pain, back pain, leg pain, and right arm pain. Pain started around Wednesday and gotten progressively worse. He states this is his normal crisis. He has been under a lot worse. He has not had any fever or chills. He has no nausea or vomiting. He denies any diarrhea. He has no sick contact. He has been smoking more cigarettes recently. He last drank alcohol a week ago. His breathing is stable. For his sickle cell disease, he get crisis 2-3 times a year. He wants to have children and so he has not started on Hydrea. He has had blood transfusion in the past. His last blood transfusion was in November 2016. He states his hemoglobin is around 8-10 g/dL at baseline. His last crisis was in November 2016. He gets his care in [place]. He just moved to [place]. He has not established care with any one in [place] as of yet. Allergies/Medications Allergies: Coded Allergies: No Known Allergies (12/17/16) Home Med List: Cholecalciferol (Vitamin D3) (Vitamin D) 1,000 UNIT TABLET 1 TAB PO DAILY SUPPLEMENT (Reported) Folic Acid 1 MG TABLET 1 TAB PO DAILY SUPPLEMENT (Reported) Oxycodone HCl 30 MG TABLET 1 TAB PO AD PRN PAIN (Reported) Current Medications: Current Medications Sig/Godfrey Start time Last Medication Dose Route Stop Time Status Admin Acetaminophen 650 MG Q6P PRN 02/15 2045 AC PO Acetaminophen/ 1 TAB Q6P PRN 02/15 2045 DC Hydrocodone Bitart PO Cholecalciferol 1,000 IU DAILY 02/16 1000 AC PO Enoxaparin Sodium 40 MG DAILY 02/15 2047 DC SC Folic Acid 1 MG DAILY 02/16 1000 AC PO Heparin Sodium 5,000 UNIT Q8 02/15 2200 AC 02/15 (Porcine) SC 2257 Hydromorphone HCl 1 MG Q4 HRS NEEDED PRN 02/16 0145 AC 02/16 IV 0608 Hydromorphone HCl 0 .STK-MED ONE 02/15 2045 DC .ROUTE Hydromorphone HCl 1 MG Q6P PRN 02/15 2045 DC 02/15 IV 2256 Hydromorphone HCl 0.6 MG ONCE ONE 02/15 2030 DC 02/15 IV 02/15 Hydromorphone HCl 0 .STK-MED ONE 02/15 194 DC .ROUTE Hydromorphone HCl 1 MG ONCE ONE 02/15 1930 DC 02/15 IV 02/15 Hydromorphone HCl 0 .STK-MED ONE 02/15 190 DC .ROUTE Hydromorphone HCl 1 MG ONCE ONE 02/15 1815 DC 02/15 IV 02/16 1816 185 Insulin Aspart 0 TIDAC 02/16 0800 AC SC Morphine Sulfate 0 .STK-MED ONE 02/15 2106 DC .ROUTE Multivitamins 1 TAB DAILY 02/16 1000 AC PO Ondansetron HCl 4 MG Q6P PRN 02/16 0145 AC 02/16 IV 0135 Ondansetron HCl 4 MG .STK-MED ONE 02/15 2252 DC IM 02/15 2253 Oxycodone HCl 20 MG Q8H 02/16 1200 AC PO Oxycodone HCl 30 MG Q8 02/16 0400 DC 02/16 PO 02/16 0401 0421 Oxycodone HCl 5 MG Q6P PRN 02/15 2230 AC 02/16 PO 0345 Polyethylene Glycol 17 GM AT BEDTIME 02/15 2200 AC PO Senna/Docusate Sodium 2 TAB AT BEDTIME 02/15 2200 AC PO Sodium Chloride 1,000 ML .Q6H40M 02/16 1800 CAN IV Sodium Chloride 1,000 ML Q6H 02/15 2030 DC 02/16 IV 02/16 0829 0345 Sodium Chloride 1,000 ML BOLUS ONE 02/15 1815 DC 02/15 IV 02/15 1914 1908 Trimethobenzamide HCl 200 MG TIDPRN PRN 02/15 2300 DC 02/16 IM 0036 Review of Systems Review of Systems Constitutional: Reports: weakness. Denies: chills, fever. Cardiovascular: Reports: chest pain. Denies: palpitations. Respiratory: Denies: cough, short of breath. GI: Denies: abdominal pain. Musculoskeletal: Reports: back pain, muscle pain. Skin: Denies: rash. Neurological/Psychological: Denies: anxiety, confusion. Hematologic/Endocrine: Denies: bruising, bleeding. Immunologic/Allergic: Denies: splenectomy, HIV/AIDS, lymphadenopathy. All Other Systems: Reviewed and Negative Past History Travel History Traveled to [place] past 21 day No Medical History Neurological: NONE EENT: NONE Cardiovascular: hypertension, hyperlipidemia Respiratory: NONE Gastrointestinal: NONE Hepatic: NONE Renal: NONE Musculoskeletal: NONE Psychiatric: NONE Endocrine: diabetes Blood Disorders: sickle cell disease Surgical History Surgical History: 1 Psychosocial History Primary Language: Amharic Smoking Status: Current Everyday Smoker ETOH Use: occasional use Illicit Drug Use: denies illicit drug use Employment History Employment: Employed Profession/Employer: batch mixing truck driver Exam & Diagnostic Data Vital Signs and I&O Vital Signs Date Time Temp Pulse Resp B/P B/P Pulse O2 O2 Flow FiO2 Mean Ox Delivery Rate 02/16 0630 97.9 85 18 106/76 97 Room Air 02/15 2304 98.1 81 20 139/84 94 Room Air 02/15 2106 99.0 88 20 118/72 98 Room Air Room Air 02/15 1759 99.3 94 22 124/73 98 Room Air Intake & Output 02/16 1600 02/16 0800 02/16 0000 Intake Total 1800 1240 Output Total 650 350 Balance 1150 890 Intake, IV 1200 1000 Intake, Oral 600 240 Output, 250 Emesis Output, Urine 400 350 Patient 93.894 kg Weight Weight Reported by Patient Measurement Method Physical Exam General Appearance: well developed/nourished, no apparent distress, alert, awake , comfortable Eyes: Bilateral: PERRL. Ears, Nose, Throat: normal pharynx Neck: supple Respiratory: normal breath sounds, chest non-tender, no respiratory distress Cardiovascular: regular rate/rhythm Gastrointestinal: normal bowel sounds, soft, non-tender, splenomegaly Extremities: normal inspection, no edema Neurologic/Psych: awake, alert, oriented x 3 Cranial Nerves: normal hearing, normal speech Skin: normal color Last 48 Hours of Lab Results: Laboratory Tests 02/16 02/16 02/15 0615 0010 2231 Chemistry Sodium (137 - 145 mmol/L) 138 Potassium (3.5 - 5.1 mmol/L) 4.3 Chloride (98 - 107 mmol/L) 102 Carbon Dioxide (22 - 30 mmol/L) 29 Anion Gap (5 - 16) 7 BUN (9 - 20 mg/dL) 14 Creatinine (0.7 - 1.2 mg/dL) 1.0 Estimated GFR (>60 ml/min) > 60 BUN/Creatinine Ratio (7 - 25 %) 14.0 Troponin I (<0.11 ng/ml) < 0.01 Hematology CBC w Diff Pending WBC Pending RBC Pending Hgb Pending Hct Pending MCV Pending MCH Pending RDW Pending Plt Count Pending MPV Pending PUBS MCHC Pending Toxicology Urine Opiates Screen (>2000 NG/ML) 1311.00 Methadone Screen (>300 NG/ML) < 40 Barbiturate Screen (>200 NG/ML) < 60 Ur Phencyclidine Scrn (>25 NG/ML) < 6.00 Amphetamines Screen (>1000 NG/ML) < 100 U Benzodiazepines Scrn (>200 NG/ML) < 85 Urine Cocaine Screen (>300 NG/ML) < 50 Urine Cannabis Screen (>50 NG/ML) < 5.00 Urines Urine Color (YEL,AMB,STR) YEL Urine Clarity (CLEAR) CLEAR Urine pH (5.0 - 8.0) 6.0 Ur Specific [place] (1.001 - 1.035) 1.015 Urine Protein (NEG,<30 MG/DL) NEG Urine Ketones (NEG) NEG Urine Nitrite (NEG) NEG Urine Bilirubin (NEG) NEG Urine Urobilinogen (0.1 - 1.0 EU/dl) 0.2 Ur Leukocyte Esterase (NEG) NEG Ur Microscopic EXAM NOT REQUIRED Urine Hemoglobin (NEG) NEG Urine Glucose (N MG/DL) NEG 02/15 02/15 1834 1834 Chemistry Sodium (137 - 145 mmol/L) 139 Potassium (3.5 - 5.1 mmol/L) 4.1 Chloride (98 - 107 mmol/L) 106 Carbon Dioxide (22 - 30 mmol/L) 24 Anion Gap (5 - 16) 9 BUN (9 - 20 mg/dL) 18 Creatinine (0.7 - 1.2 mg/dL) 1.3 H Estimated GFR (>60 ml/min) > 60 BUN/Creatinine Ratio (7 - 25 %) 13.8 Glucose (65 - 99 mg/dL) 114 H Hemoglobin A1c Pending Calcium (8.4 - 10.2 mg/dL) 9.4 Total Bilirubin (0.2 - 1.3 mg/dL) 1.4 H AST (17 - 59 U/L) 49 ALT (21 - 72 U/L) 48 Alkaline Phosphatase (< 127 U/L) 70 Troponin I (<0.11 ng/ml) < 0.01 Total Protein (6.3 - 8.2 g/dL) 8.0 Albumin (3.5 - 5.0 g/dL) 4.5 Globulin (1.9 - 4.2 gm/dL) 3.5 Albumin/Globulin Ratio (1.1 - 2.2 %) 1.3 Hematology CBC w Diff MAN DIFF ORDERED WBC (4.8 - 10.8 /CUMM) 7.5 RBC (4.70 - 6.10 /CUMM) 4.29 L Hgb (14.0 - 18.0 G/DL) 10.6 L Hct (42 - 52 %) 31.8 L MCV (80.0 - 94.0 FL) 74.2 L MCH (27.0 - 31.0 PG) 24.8 L RDW (11.5 - 14.5 %) 17.5 H Plt Count (130 - 400 /CUMM) 122 L MPV (7.4 - 10.4 FL) 9.0 Segmented Neutrophils (42.2 - 75.2 %) 50 Lymphocytes (20.5 - 51.1 %) 42 Monocytes (1.7 - 9.3 %) 5 Eosinophils (0 - 5.0 %) 3 Nucleated RBCs (0.0 - 0.0 /100WBC) 1 H Platelet Estimate (ADEQUATE) ADEQUATE Polychromasia 1+ Anisocytosis 1+ Microcytic Cells 1+ PUBS MCHC (33.0 - 37.0 G/DL) 33.4 Retic Count (0.5 - 2.0 %) 3.43 H Imaging/Other Studies: CXR 02/15/2017: No evidence of an acute intrathoracic process. Assessment/Plan Assessment: Mr. Wray is a 36-year-old male with sickle cell disease, DM, HLD, and tobacco usage who presented to the ED with chest pain, leg pain, and right arm pain. This is similar to previous sicle cell crisis. His hemoglobin is at baseline per the patient. Platelet count is a little lower than normal for him. His pain is controlled right now. He is on IV fluid currently. He has no signs or symptoms of infections. Vital signs are stable. He has recently moved to [place]. He should establish care with Dr. Niño at [facility]. He should be referred on discharge. Recommendations: 1. Continue IV fluid 2. Continue current pain regimen 3. Continue encouraging use of incentive spirometer 4. DVT prophylaxis 5. Obtain OSH records for sickle cell diagnosis and treatment 6. Follow up with Dr. Dave Niño with [facility] Problem List: 1. Chest pain 2. Sickle cell crisis Other Findings/Comments: Please call [phone] with new any questions or concerns. Consult Acknowledgment - Thank you for your consult request.
[2017-02-16 14:11] VITALS: BP 122/88
--- NOTE | 2017-02-16 14:47 | CT SCAN REPORT ---
EXAMINATION: CT PELVIS WITHOUT CONTRAST CLINICAL INFORMATION: Pain in hip on ambulation. History of sickle cell disease. Evaluate for avascular necrosis. COMPARISON: CT of the abdomen and pelvis 12/17/2016. TECHNIQUE: Helical scanning was performed with submillimeter collimation through the pelvis. Sagittal and coronal multiplanar 2-D reconstructions were obtained. DLP: 672.23 mGy-cm FINDINGS: PELVIS: There is no pelvic mass or adenopathy. OSSEOUS STRUCTURES: There is no significant change in low-grade appearing avascular necrosis involving both femoral heads. There is no evidence of cortical collapse. There are stable-appearing chronic bone infarcts in the subtrochanteric femurs bilaterally. There are stable nonspecific patchy areas of sclerosis in the pelvic bones. IMPRESSION: 1. Stable low grade-appearing avascular necrosis of both femoral heads. No evidence of cortical collapse. 2. Stable chronic bone infarcts in the subtrochanteric femurs bilaterally.
[2017-02-16 23:18] VITALS: BP 125/84
--- NOTE | 2017-02-17 01:14 | NUR ---
NURSING NOTE: PATIENT C/O CHEST PAIN AT THIS TIME. VSS, NO ACUTE DISTRESS, LYING IN BED. PATIENT STATES "IT'S THE SAME KIND I'VE GOTTEN BEFORE ON AND OFF." RATES PAIN 01/06. PATIENT MEDICATED FOR PAIN, 156 JERILYN MADE AWARE OF ABOVE. EKG AND TROPONINS ORDERED. WILL CONTINUE TO MONITOR.
[2017-02-17 06:30] VITALS: BP 129/79
--- NOTE | 2017-02-17 07:20 | PN- Housestaff ---
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 Overnight he had significant left chest pain with heart racing. He denies any diaphoresis, radiation to left jaw/hand. Able to eat and drink well, ambulating well. Pain in the back, hip, neck region is 5/10, improving. Review of Systems Constitutional: Reports: see HPI. Comments: Otherwise negative except about Objective Last 24 Hrs of Vital Signs/I&O Vital Signs Date Time Temp Pulse Resp B/P B/P Pulse O2 O2 Flow FiO2 Mean Ox Delivery Rate 02/16 2318 98.9 81 20 125/84 92 Room Air 02/16 1411 98.1 85 20 122/88 95 Room Air 02/16 0908 Room Air Intake & Output 02/17 0800 02/17 0000 02/16 1600 Intake Total 1520 1840 1475 Output Total Balance 1520 1840 1475 Intake, IV 1040 1000 875 Intake, Oral 480 840 600 Number 0 Bowel Movements Patient 93.894 kg Weight Physical Exam General Appearance: Alert, Oriented X3, Cooperative, No Acute Distress Skin: No Rashes, No Breakdown HEENT: Atraumatic, PERRLA, EOMI Neck: Supple Cardiovascular: Normal S1, Normal S2 Lungs: Clear to Auscultation, Normal Air Movement Abdomen: Normal Bowel Sounds, Soft, No Tenderness Neurological: Normal Speech, Strength at 5/5 X4 Ext, Normal Tone, Sensation Intact Extremities: No Clubbing, No Cyanosis, No Edema Vascular: Normal Pulses, Pulses Symmetrical Current Medications: Current Medications Sig/Godfrey Start time Last Medication Dose Route Stop Time Status Admin Acetaminophen 650 MG Q6P PRN 02/155 AC PO Benzocaine/Menthol 1 NOAM Q2P PRN 02/17 0630 AC PO Calcium Carbonate 500 MG ONCE ONE 02/16 223 DC 02/16 PO 02/16 2231 2226 Calcium Carbonate 500 MG DAILY 02/16 1616 AC 02/16 PO 1638 Cholecalciferol 1,000 IU DAILY 02/16 1000 AC 02/16 PO 0910 Dextrose/Sodium 1,000 ML Q8H 02/16 0845 DC 02/16 Chloride IV 0911 Diphenhydramine HCl 25 MG .STK-MED ONE 02/16 1406 DC PO 02/16 1407 Diphenhydramine HCl 25 MG ONCE ONE 02/16 1400 DC 02/16 PO 02/16 1401 1405 Folic Acid 1 MG DAILY 02/16 1000 AC 02/16 PO 0910 Heparin Sodium 5,000 UNIT Q8 02/15 2200 DC 02/15 (Porcine) SC 2257 Hydromorphone HCl 1 MG Q4 HRS NEEDED PRN 02/16 0145 AC 02/17 IV 0557 Insulin Aspart 0 TIDAC 02/16 0800 AC 02/16 SC 0910 Multivitamins 1 TAB DAILY 02/16 1000 AC 02/16 PO 0910 Omeprazole 20 MG DAILY AC 02/17 0700 AC 02/17 PO 0604 Ondansetron HCl 4 MG Q6P PRN 02/16 0145 AC 02/16 IV 1035 Oxycodone HCl 20 MG Q8H 02/16 1200 DC PO Oxycodone HCl 20 MG .STK-MED ONE 02/16 0859 DC PO 02/16 0900 Oxycodone HCl 20 MG Q12 02/16 0845 AC 02/16 PO 2109 Oxycodone HCl 5 MG Q6P PRN 02/15 2230 AC 02/16 PO 1316 Polyethylene Glycol 17 GM AT BEDTIME 02/15 220 AC 02/16 PO 2110 Senna/Docusate Sodium 2 TAB AT BEDTIME 02/15 2200 AC 02/16 PO 2108 Sodium Chloride 1,000 ML .Q8H 02/16 1015 AC 02/17 IV 02/17 1014 0109 Sodium Chloride 1,000 ML Q6H 02/15 2030 DC 02/16 IV 02/16 0829 0345 Last 24 Hrs of Lab/Tian Results Last 24 Hrs of Labs/Mics: Laboratory Tests 02/17/17 0605: Anion Gap 5, Estimated GFR > 60, BUN/Creatinine Ratio 11.8, Troponin I < 0.01, CBC w Diff NO MAN DIFF REQ, RBC 3.97 L, MCV 75.1 L, MCH 23.8 L, RDW 17.5 H, MPV 8.4, Gran % 39.4 L, Lymphocytes % 47.9, Monocytes % 6.3, Eosinophils % 5.8 H, Basophils % 0.6, Absolute Granulocytes 2.6, Absolute Lymphocytes 3.1, Absolute Monocytes 0.4, Absolute Eosinophils 0.4, Absolute Basophils 0, PUBS MCHC 31.7 L 02/17/17 0130: Troponin I < 0.01 Assessment/Plan Assessment: Patient is a 36-year-old male with past medical history significant for recently diagnosed type II diabetes, sickle cell disease, hyperlipidemia, sickle cell crisis presented to ER with another episode of sickle cell vaso-occlusive crisis. Sickle cell vaso-occlusive crisis * Patient has been aggressively hydrated, normal saline @ 75ml/hr * Optimal pain management Dilaudid 1 mg every 6 for severe pain, OxyContin 5 mg every 6 for moderate pain * ACS ruled out with negative troponins and EKGs * Continue to monitor H&H and kidney function * Continue home dose folic acid and vitamin D * Trying to obtain records from previous primary care physician and pit tanner * Chest x-ray today significant for mild pulmonary congestion, linear subsegmental atelectasis in the left lung base. * Initially thought of considering CT angiogram, however as risk of sickling increases with contrast -- we will obtain d-dimer's for now * PERC is zero. 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 Sickle cell crisis 2. Bone infarction 3. AVN (avascular necrosis of bone) 4. Spleen enlarged 5. Splenic infarction 6. Chest pain Pain Ratin Pain Location: Chest pain, low back pain. Pain Goal: Pain 4 or less Pain Plan: Dilaudid, Tylenol OxyContin Tomorrow's Labs & Rationales: BEP to monitor electrolytes and creatinine JAELYN PEÑA MD 02/17/17 1108: Attending MD Review Statement Attending Statement Attending MD Statement: examined this patient, discuss w/resident/PA/SQL ENGINEER, agreed w/resident/PA/SQL ENGINEER, reviewed EMR data (avail) Attending Assessment/Plan: 36M PMH sickle cell presenting with sickle cell crisis with diffuse pain worse in right hip, with imaging showing stable mild avascular necrosis of bilateral hips. Patient feels better overall today. His diffuse pain and hip pain is markedly improved. However, he still complains of bilateral chest pain, which is unusual for him with respect to prior sickle cell crises. He denies shortness of breath but does report palpiations. The pain does not radiate and is not exertional. 1. Sickle cell crisis 2. Avascular necrosis bilateral hips Plan - Continue on general medicine - Obtain EKG, troponin level - Obtain CTA of chest to rule out pulmonary embolism - IV hydration with 1/2 NS - Continue pain medications - Monitor renal function - Outpatient follow up with orthopedics - DVT PPx
--- NOTE | 2017-02-17 08:26 | PN- Hematology ---
Subjective Subjective: He has some intermittent left sided chest pain. Pain started yesterday and last for a few minutes. He denies any breathing difficulty. He has no fever or chills. His other pain is improved. Review of Systems Constitutional: Denies: chills, fever. Cardiovascular: Reports: chest pain. Denies: edema, orthopena, palpitations, peripheral edema. Respiratory: Denies: short of breath. Gastrointestinal: Denies: abdominal pain. Musculoskeletal: Reports: back pain (improved). Neurological/Psychological: Denies: anxiety. Hematologic/Endocrine: Denies: bruising, bleeding. All Other Systems: Reviewed and Negative Objective Vital Signs and I&Os Vital Signs Date Time Temp Pulse Resp B/P B/P Pulse O2 O2 Flow FiO2 Mean Ox Delivery Rate 02/17 06 98.6 80 20 129/79 94 Room Air 02/16 2318 98.9 81 20 125/84 92 Room Air 02/16 1411 98.1 85 20 122/88 95 Room Air 02/16 0908 Room Air Intake & Output 02/17 1600 02/17 0800 02/17 0000 02/16 1600 02/16 0800 02/16 0000 Intake Total 1520 1840 1475 1800 1240 Output Total 650 350 Balance 1520 1840 1475 1150 890 Intake, IV 1040 0897 182 6455 1000 Intake, Oral 480 840 600 600 240 Number 0 Bowel Movements Output, 250 Emesis Output, Urine 400 350 Patient 93.894 kg 93.894 kg Weight Weight Reported by Patient Measurement Method Physical Exam: General Appearance: well developed/nourished, no apparent distress, alert, awake , comfortable Respiratory: normal breath sounds, chest non-tender, no respiratory distress Cardiovascular: regular rate/rhythm Gastrointestinal: normal bowel sounds, soft, non-tender, splenomegaly Extremities: normal inspection, no edema Neurologic/Psych: awake, alert, oriented x 3 Skin: normal color Current Medications: Current Medications Sig/Godfrey Start time Last Medication Dose Route Stop Time Status Admin Acetaminophen 650 MG Q6P PRN 02/15 2045 AC PO Benzocaine/Menthol 1 NOAM Q2P PRN 02/17 0630 AC PO Calcium Carbonate 500 MG ONCE ONE 02/16 223 DC 02/16 PO 02/16 2231 2226 Calcium Carbonate 500 MG DAILY 02/16 1616 AC 02/16 PO 1638 Cholecalciferol 1,000 IU DAILY 02/16 1000 AC 02/16 PO 0910 Dextrose/Sodium 1,000 ML Q8H 02/16 0845 DC 02/16 Chloride IV 0911 Diphenhydramine HCl 25 MG .STK-MED ONE 02/16 1406 DC PO 02/16 1407 Diphenhydramine HCl 25 MG ONCE ONE 02/16 1400 DC 02/16 PO 02/16 1401 1405 Folic Acid 1 MG DAILY 02/16 1000 AC 02/16 PO 0910 Heparin Sodium 5,000 UNIT Q8 02/15 2200 DC 02/15 (Porcine) SC 2257 Hydromorphone HCl 1 MG Q4 HRS NEEDED PRN 02/16 0145 AC 02/17 IV 0557 Insulin Aspart 0 TIDAC 02/16 0800 AC 02/16 SC 0910 Multivitamins 1 TAB DAILY 02/16 1000 AC 02/16 PO 0910 Omeprazole 20 MG DAILY AC 02/17 0700 AC 02/17 PO 0604 Ondansetron HCl 4 MG Q6P PRN 02/16 0145 AC 02/16 IV 1035 Oxycodone HCl 20 MG Q8H 02/16 1200 DC PO Oxycodone HCl 20 MG .STK-MED ONE 02/16 0859 DC PO 02/16 0900 Oxycodone HCl 20 MG Q12 02/16 0845 AC 02/16 PO 2109 Oxycodone HCl 5 MG Q6P PRN 02/15 2230 AC 02/17 PO 0803 Polyethylene Glycol 17 GM AT BEDTIME 02/15 2200 AC 02/16 PO 2110 Senna/Docusate Sodium 2 TAB AT BEDTIME 02/15 2200 AC 02/16 PO 2108 Sodium Chloride 1,000 ML .Q8H 02/16 1015 AC 02/17 IV 02/17 1014 0109 Sodium Chloride 1,000 ML Q6H 02/15 2030 DC 02/16 IV 02/16 0829 0345 Results Last 24 Hours of Lab Results: Laboratory Tests 02/17 02/17 0605 0130 Chemistry Sodium Pending Potassium Pending Chloride Pending Carbon Dioxide Pending Anion Gap Pending BUN Pending Creatinine Pending BUN/Creatinine Ratio Pending Troponin I (<0.11 ng/ml) < 0.01 Hematology CBC w Diff Pending WBC Pending RBC Pending Hgb Pending Hct Pending MCV Pending MCH Pending RDW Pending Plt Count Pending MPV Pending PUBS MCHC Pending Recent Imaging Studies: Pelvic CT 02/16/2017: 1. Stable low grade-appearing avascular necrosis of both femoral heads. No evidence of cortical collapse. 2. Stable chronic bone infarcts in the subtrochanteric femurs bilaterally. Assessment/Plan Assessment/Recommendations: Mr. Wray is a 36-year-old male with sickle cell disease, DM, HLD, and tobacco usage who presented to the ED with chest pain, leg pain, and right arm pain. This is similar to previous sicle cell crisis. His hemoglobin is at baseline per the patient. Platelet count is a little lower than normal for him. This may be splenic sequestration. His pain is controlled right now. He does have some left chest pain. If this is persistent, CTA may be reasonable to evaluate for PE and pulmonary etiology. He is at increased risk for thrombosis. He has no signs or symptoms of infections He has recently moved to [place]. He should establish care with Dr. Dave Ibrahim at [facility] and referred there after discharge. Recommendations: 1. Continue IV fluid 2. Continue current pain regimen 3. Continue encouraging use of incentive spirometer 4. Consider Chest CTA if persistent pain or new symptoms 5. DVT prophylaxis 6. Follow up OSH records for sickle cell diagnosis and treatment 7. Will need referral to see Dr. Dave Ibrahim at [facility] Please call [phone] with new any questions or concerns. Problem List: 1. AVN (avascular necrosis of bone) 2. Spleen enlarged 3. Sickle cell crisis
[2017-02-17 08:28] LABS: ABSOLUTE BASOPHIL COUNT 0 /CUMM (0.0-0.2); ABSOLUTE EOSINOPHIL COUNT 0.4 /CUMM (0.0-0.7); ABSOLUTE GRANULOCYTE CT 2.6 /CUMM (1.4-6.5); ABSOLUTE LYMPH COUNT 3.1 /CUMM (1.2-3.4); ABSOLUTE MONOCYTE COUNT 0.4 /CUMM (0.10-0.60); BASOPHIL % 0.6 % (0.0-2.0); EOSINOPHIL % 5.8 % (0-5); GRANULOCYTE % 39.4 % (42.2-75.2); HEMATOCRIT 29.8 % (42-52); MEAN CORPUSCULAR HGB 23.8 PG (27.0-31.0); MEAN CORPUSCULAR HGB CONC 31.7 G/DL (33.0-37.0); MEAN CORPUSCULAR VOLUME 75.1 FL (80.0-94.0); MEAN PLATELET VOLUME 8.4 FL (7.4-10.4); PLATELET COUNT 110 /CUMM (130-400); RBC DISTRIBUTION WIDTH 17.5 % (11.5-14.5); RED BLOOD CELL CT 3.97 /CUMM (4.70-6.10); WHITE BLOOD CELL COUNT 6.5 /CUMM (4.8-10.8)
[2017-02-17 13:49] VITALS: BP 136/80
--- NOTE | 2017-02-17 16:09 | RADIOLOGY REPORT ---
EXAMINATION: XR CHEST CLINICAL INFORMATION: Chest pain or palpitations. Sickle cell disease patient. Evaluate for pneumonia or other acute lung process. Currently in vaso-occlusive pain crisis. COMPARISON: Chest x-ray dated 02/15/2017. TECHNIQUE: 2 views of the chest were obtained on 3 images. FINDINGS: The cardiomediastinal silhouette is borderline enlarged. Low lung volumes are seen with some mild linear subsegmental atelectasis noted in the left lung base. No focal consolidation, effusion or pneumothorax is seen. Slight prominence of the central pulmonary vessels is seen, suggesting vascular congestion. No overt pulmonary edema is noted. Bony structures are unremarkable. IMPRESSION: 1. Borderline enlarged cardiac silhouette. 2. Mild central vascular congestion. No overt pulmonary edema. 3. Linear subsegmental atelectasis in left lung base. No focal pneumonia.
[2017-02-17 22:34] VITALS: BP 132/86
[2017-02-18 06:53] VITALS: BP 112/68
--- NOTE | 2017-02-18 07:28 | PN- Housestaff ---
See Addendum Subjective Follow-up For: Sickle cell vasoocclusive crisis Type 2 diabetes Subjective: I saw and examined the patient today morning He is doing well, his pain got much better. Stopped fluids. No overnight events. Review of Systems Constitutional: Reports: see HPI. Comments: ROS negative except the above Objective Last 24 Hrs of Vital Signs/I&O Vital Signs Date Time Temp Pulse Resp B/P B/P Pulse O2 O2 Flow FiO2 Mean Ox Delivery Rate 02/18 0653 98.6 82 20 112/68 95 Room Air 02/17 2234 98.1 80 20 132/86 97 Room Air 02/17 1349 98.1 86 20 136/80 96 Room Air Intake & Output 02/18 0800 02/18 0000 02/17 1600 Intake Total 6316 553 1280 Output Total Balance 2291 479 7301 Intake, IV 965 900 2416 Intake, Oral 480 600 700 Physical Exam General Appearance: Alert, Oriented X3, Cooperative Skin: No Rashes, No Breakdown HEENT: Atraumatic, PERRLA, EOMI Neck: Supple Cardiovascular: Normal S1, Normal S2 Lungs: Clear to Auscultation, Normal Air Movement Abdomen: Normal Bowel Sounds, Soft, No Tenderness Neurological: Normal Gait, Normal Speech, Strength at 5/5 X4 Ext, Normal Tone, Sensation Intact, Cranial Nerves 3-12 NL Extremities: No Clubbing, No Cyanosis, No Edema Vascular: Normal Pulses, Pulses Symmetrical Current Medications: Current Medications Sig/Godfrey Start time Last Medication Dose Route Stop Time Status Admin Acetaminophen 650 MG Q6P PRN 02/15 2045 AC PO Benzocaine/Menthol 1 NOAM Q2P PRN 02/17 0630 AC 02/17 PO 0853 Calcium Carbonate 500 MG DAILY 02/16 1616 AC 02/18 PO 1014 Cholecalciferol 1,000 IU DAILY 02/16 1000 AC 02/18 PO 1014 Folic Acid 1 MG DAILY 02/16 1000 AC 02/18 PO 1014 Hydromorphone HCl 1 MG Q4 HRS NEEDED PRN 02/16 0145 AC 02/18 IV 0244 Insulin Aspart 0 TIDAC 02/16 0800 AC 02/16 SC 0910 Multivitamins 1 TAB DAILY 02/16 1000 AC 02/18 PO 1014 Omeprazole 20 MG DAILY AC 02/17 0700 AC 02/17 PO 0604 Ondansetron HCl 4 MG Q6P PRN 02/16 0145 AC 02/16 IV 1035 Oxycodone HCl 20 MG Q12 02/16 0845 AC 02/18 PO 1014 Oxycodone HCl 5 MG Q6P PRN 02/15 2230 AC 02/18 PO 0550 Polyethylene Glycol 17 GM AT BEDTIME 02/15 2200 AC 02/17 PO 2116 Senna/Docusate Sodium 2 TAB AT BEDTIME 02/15 2200 AC 02/17 PO 2116 Sodium Chloride 1,000 ML Q13H 02/17 1715 DC 02/18 IV 0550 Last 24 Hrs of Lab/Tian Results Last 24 Hrs of Labs/Mics: Laboratory Tests 02/18/17 0918: D-Dimer High Sensitivty 778 H 02/18/17 0610: Anion Gap 9, Estimated GFR > 60, BUN/Creatinine Ratio 13.6, CBC w Diff MAN DIFF ORDERED, RBC 4.00 L, MCV 73.9 L, MCH 23.7 L, RDW 17.3 H, MPV 8.0, Gran % 48.3, Lymphocytes % 40.1, Monocytes % 5.0, Eosinophils % 6.3 H, Basophils % 0.3 , Absolute Granulocytes 3.4, Absolute Lymphocytes 2.8, Absolute Monocytes 0.4, Absolute Eosinophils 0.4, Absolute Basophils 0, Platelet Estimate DECREASED, Polychromasia 1+, Hypochromic-Microcytic 1+, Poikilocytosis 1+, Basophilic Stippling SLIGHT, Anisocytosis 1+, Microcytic Cells 1+, Target Cells , Ovalocytes , PUBS MCHC 32.1 L Assessment/Plan Assessment: Patient is a 36-year-old male with past medical history significant for recently diagnosed type II diabetes, sickle cell disease, hyperlipidemia, sickle cell crisis presented to ER with another episode of sickle cell vaso-occlusive crisis. Sickle cell vaso-occlusive crisis * Discontinued fluids * ACS ruled out with negative troponins and EKGs * Obtianed records from PCP today. * Chest x-ray today significant for mild pulmonary congestion, linear subsegmental atelectasis in the left lung base. * PERC is zero. * Lower extrmeity doppler ultrasound is negative for DVT * Stable for discharge today. 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 Sickle cell crisis 2. Bone infarction 3. AVN (avascular necrosis of bone) 4. Spleen enlarged 5. Splenic infarction 6. Chest pain Pain Ratin Pain Location: chest pain, back pain Pain Goal: Pain 4 or less Pain Plan: tylenol, oxycontin, dilaudid Tomorrow's Labs & Rationales: none
[2017-02-18 07:52] LABS: ABSOLUTE BASOPHIL COUNT 0 /CUMM (0.0-0.2); ABSOLUTE EOSINOPHIL COUNT 0.4 /CUMM (0.0-0.7); ABSOLUTE GRANULOCYTE CT 3.4 /CUMM (1.4-6.5); ABSOLUTE LYMPH COUNT 2.8 /CUMM (1.2-3.4); ABSOLUTE MONOCYTE COUNT 0.4 /CUMM (0.10-0.60); BASOPHIL % 0.3 % (0.0-2.0); EOSINOPHIL % 6.3 % (0-5); GRANULOCYTE % 48.3 % (42.2-75.2); HEMATOCRIT 29.6 % (42-52); MEAN CORPUSCULAR HGB 23.7 PG (27.0-31.0); MEAN CORPUSCULAR HGB CONC 32.1 G/DL (33.0-37.0); MEAN CORPUSCULAR VOLUME 73.9 FL (80.0-94.0); PLATELET COUNT 102 /CUMM (130-400); RBC DISTRIBUTION WIDTH 17.3 % (11.5-14.5)
[2017-02-18] MEDS ORDERED: METFORMIN HCL500 M3 PO (09:19)
[2017-02-18] MEDS ORDERED: GLIPIZIDE ER5 M1 PO (09:20)
[2017-02-18] MEDS ORDERED: OXYCONTIN10 M1 PO (09:22)
--- NOTE | 2017-02-18 09:24 | Patient Discharge Instructions ---
Discharge Instructions General Discharge Information You were seen/treated for: Sickle cell vaso occlusive crisis Special Instructions: Please follow up with as outpatient Please make sure to drink plenty of water. Please take your medications regularly. Diet Continue normal diet: Yes Activity Full Activity/No Limits: Yes Acute Coronary Syndrome Inclusion Criteria At DC or during hospital stay patient has or had the following: ACS DIAGNOSIS No Discharge Core Measures Meds if any: Prescribed or Continued at Discharge Meds if any: NOT Prescribed or Continued at Discharge Congestive Heart Failure Inclusion Criteria At DC or during hospital stay patient has or had the following: CHF DIAGNOSIS No Discharge Core Measures Meds if any: Prescribed or Continued at Discharge Meds if any: NOT Prescribed or Continued at Discharge Cerebrovascular accident Inclusion Criteria At DC or during hospital stay patient has or had the following: CVA/TIA Diagnosis No Discharge Core Measures Meds if any: Prescribed or Continued at Discharge Meds if any: NOT Prescribed or Continued at Discharge Venous thromboembolism Inclusion Criteria VTE Diagnosis No VTE Type NONE VTE Confirmed by (Test) NONE Discharge Core Measures - Per Current guidelines, there needs to be overlap - treatment for the first 5 days of Warfarin therapy. - If discharged on Warfarin prior to 5 days of - overlap therapy, the patient will need to be - assessed for post discharge needs including - *Post discharge parental anticoagulation - *Warfarin and/or parental anticoagulation education - *Follow up date to check INR post discharge At least 5 days overlap therapy as Inpatient No Meds if any: Prescribed or Continued at Discharge Note: Overlap Therapy is Warfarin and Anticoagulant Meds if any: NOT Prescribed or Continued at Discharge
[2017-02-18] MEDS ORDERED: ATORVASTATIN CA10 M1 PO (11:00)
[2017-02-18] MEDS ORDERED: OXYCONTIN30 M1 PO (11:01)
--- NOTE | 2017-02-18 11:55 | ULTRASOUND REPORT ---
EXAMINATION: US TRIPLEX OF LOWER EXTREMITIES, BILATERAL CLINICAL INFORMATION: This is a 36-year-old male with sickle cell disease. Chest pain and shortness of breath. COMPARISON: None TECHNIQUE: Color-flow triplex imaging with spectral analysis and compression Doppler were performed on the lower extremities. FINDINGS: Respiratory variation, normal compression and augmented flow are noted throughout the lower extremities. The visualized common femoral vein, superficial femoral vein, profunda femoral vein, popliteal vein and midcalf peroneal and posterior tibial venous segments show no evidence of deep venous thrombosis. There is no Lewis's cyst. IMPRESSION: Normal triplex scan without evidence of deep venous thrombosis involving the lower extremities.
--- NOTE | 2017-02-18 12:34 | PN- Hematology ---
Subjective Subjective: His chest pain is improved. He feels better this morning. He leg pain is stable. He has no fever or chills overnight. He has no nausea or vomiting. Review of Systems: Constitutional: Denies: chills, fever. Cardiovascular: Reports: chest pain. Denies: palpitations. Respiratory: Denies: short of breath. Gastrointestinal: Denies: abdominal pain. Musculoskeletal: Reports: back pain (improved). All Other Systems: Reviewed and Negative Objective Vital Signs and I&Os Vital Signs Date Time Temp Pulse Resp B/P B/P Pulse O2 O2 Flow FiO2 Mean Ox Delivery Rate 02/18 0653 98.6 82 20 112/68 95 Room Air 02/17 2234 98.1 80 20 132/86 97 Room Air 02/17 1349 98.1 86 20 136/80 96 Room Air Intake & Output 02/18 1600 02/18 0800 02/18 0000 02/17 1600 02/17 0800 02/17 0000 Intake Total 3866 562 6961 1520 1840 Output Total Balance 4561 178 8015 1520 1840 Intake, IV 362 776 2663 1040 1000 Intake, Oral 480 600 700 480 840 Number 0 Bowel Movements Physical Exam: General Appearance: well developed/nourished, no apparent distress, alert, comfortable Respiratory: chest non-tender, no respiratory distress Cardiovascular: regular rate/rhythm Gastrointestinal: normal bowel sounds, soft, non-tender, splenomegaly Extremities: normal inspection, no edema Neurologic/Psych: alert, oriented x 3 Current Medications: Current Medications Sig/Godfrey Start time Last Medication Dose Route Stop Time Status Admin Acetaminophen 650 MG Q6P PRN 02/15 2045 AC PO Benzocaine/Menthol 1 NOAM Q2P PRN 02/17 0630 AC 02/17 PO 0853 Calcium Carbonate 500 MG DAILY 02/16 1616 AC 02/18 PO 1014 Cholecalciferol 1,000 IU DAILY 02/16 1000 AC 02/18 PO 1014 Folic Acid 1 MG DAILY 02/16 1000 AC 02/18 PO 1014 Hydromorphone HCl 1 MG Q4 HRS NEEDED PRN 02/16 0145 AC 02/18 IV 0244 Insulin Aspart 0 TIDAC 02/16 0800 AC 02/16 SC 0910 Multivitamins 1 TAB DAILY 02/16 1000 AC 02/18 PO 1014 Omeprazole 20 MG DAILY AC 02/17 0700 AC 02/17 PO 0604 Ondansetron HCl 4 MG Q6P PRN 02/16 0145 AC 02/16 IV 1035 Oxycodone HCl 20 MG Q12 02/16 0845 AC 02/18 PO 1014 Oxycodone HCl 5 MG Q6P PRN 02/15 2230 AC 02/18 PO 0550 Polyethylene Glycol 17 GM AT BEDTIME 02/15 220 AC 02/17 PO 2116 Senna/Docusate Sodium 2 TAB AT BEDTIME 02/15 2200 AC 02/17 PO 2116 Sodium Chloride 1,000 ML Q13H 02/17 1715 DC 02/18 IV 0550 Results Last 24 Hours of Lab Results: Laboratory Tests 02/18 02/18 0918 0610 Chemistry Sodium (137 - 145 mmol/L) 138 Potassium (3.5 - 5.1 mmol/L) 4.2 Chloride (98 - 107 mmol/L) 101 Carbon Dioxide (22 - 30 mmol/L) 29 Anion Gap (5 - 16) 9 BUN (9 - 20 mg/dL) 15 Creatinine (0.7 - 1.2 mg/dL) 1.1 Estimated GFR (>60 ml/min) > 60 BUN/Creatinine Ratio (7 - 25 %) 13.6 Coagulation D-Dimer High Sensitivty (0 - 243 ng/ml) 778 H Hematology CBC w Diff MAN DIFF ORDERED WBC (4.8 - 10.8 /CUMM) 7.0 RBC (4.70 - 6.10 /CUMM) 4.00 L Hgb (14.0 - 18.0 G/DL) 9.5 L Hct (42 - 52 %) 29.6 L MCV (80.0 - 94.0 FL) 73.9 L MCH (27.0 - 31.0 PG) 23.7 L RDW (11.5 - 14.5 %) 17.3 H Plt Count (130 - 400 /CUMM) 102 L MPV (7.4 - 10.4 FL) 8.0 Gran % (42.2 - 75.2 %) 48.3 Lymphocytes % (20.5 - 51.1 %) 40.1 Monocytes % (1.7 - 9.3 %) 5.0 Eosinophils % (0 - 5 %) 6.3 H Basophils % (0.0 - 2.0 %) 0.3 Absolute Granulocytes (1.4 - 6.5 /CUMM) 3.4 Absolute Lymphocytes (1.2 - 3.4 /CUMM) 2.8 Absolute Monocytes (0.10 - 0.60 /CUMM) 0.4 Absolute Eosinophils (0.0 - 0.7 /CUMM) 0.4 Absolute Basophils (0.0 - 0.2 /CUMM) 0 Platelet Estimate (ADEQUATE) DECREASED Polychromasia 1+ Hypochromic-Microcytic 1+ Poikilocytosis 1+ Basophilic Stippling SLIGHT Anisocytosis 1+ Microcytic Cells 1+ Target Cells Ovalocytes PUBS MCHC (33.0 - 37.0 G/DL) 32.1 L Recent Imaging Studies: CXR 02/17/2017: 1. Borderline enlarged cardiac silhouette. 2. Mild central vascular congestion. No overt pulmonary edema. 3. Linear subsegmental atelectasis in left lung base. No focal pneumonia. Assessment/Plan Assessment/Recommendations: Mr. Wray is a 36-year-old male with sickle cell disease, DM, HLD, and tobacco usage who presented to the ED with chest pain, leg pain, and right arm pain. This is similar to previous sicle cell crisis. His hemoglobin is at baseline per the patient. Platelet count is a little lower than normal for him. This may be splenic sequestration. His pain is controlled right now. Chest pain is improved today. CXR demonstrated mild pulmonary congestion. He continues to be afebrile without symptoms of infection. His oxygen saturation is good at >92% on room air. He is enouraged to use incentive spirometer at least every hour. Recommendations: 1. Continue current pain regimen 2. Continue encouraging use of incentive spirometer 3. Can consider stopping fluid with pulmonary congestion and encourage oral intake 4. If chest pain persistent, CTA chest should be done to evaluate for PE given high risk in sickle cell patients 5. Continue prophylaxis for VTE 6. Need referral to see Dr. Dave Ibrahim at [facility] Please call [phone] with new any questions or concerns. Problem List: 1. Sickle cell crisis 2. AVN (avascular necrosis of bone) 3. Spleen enlarged
[2017-02-18 14:13] VITALS: BP 118/70
--- NOTE | 2017-02-18 16:22 | Discharge Summary ---
Visit Information Visit Dates Admission Date: 02/15/17 Discharge Date: 02/18/17 Hospital Course Course Attending Physician: ABHIJIT KAMARA MD Primary Care Physician: UNKNOWN Consulting Request: Consulting Specialty: Hematology/Oncology Consulting Physician: Reason for Consult: sickle cell crisis Hospital Course: Patient is a 36-year-old male with past medical history significant for recently diagnosed type II diabetes, sickle cell disease, hyperlipidemia, sickle cell crisis presented to ER with another episode of sickle cell vaso-occlusive crisis. On admission Vital signs temperature 99.3, pulse 94 regular, BP 124/73, RR 22 saturating 98% room air Labs WBC 7.5, H&H 10.6/31.8, platelet 122, reticulocyte count 3.43, absolute reticulocyte count 2.6, sodium 139, potassium 4.1, BUN/creatinine 18/1.3, glucose 114, LFT WNL Chest x-ray did not reveal evidence of acute intrathoracic process. EKG sinus rhythm, rate 76, QTC 491 In ED, patient was given 1 bolus of normal saline, IV fluid was kept pending at 150 mL per in addition to pain management Sickle cell vaso-occlusive crisis He was started on fluids D51/2NS@75ml/hr which were converted to NS @75ml/hr over the course of next 2days. Pain was managed with IV dilaudis, Oxycontine 20mgBID, Tylenol as required. ACS ruled out with negative troponins and EKGs as patient presented with chest pain. Repeat Chest x-ray on 02/17/17 significant for mild pulmonary congestion, linear subsegmental atelectasis in the left lung base. As his PERC is zero along with risk for sickling, CT angio was not performed. 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 He was given referral to our PCP () for further follow up. He need to follow up with Dr.John Ibrahim at [facility] in regard to management of sickle cell disease. 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 As patient claims right hip pain with walking although not limiting his ability to walk -- CT of biateral hips done. At the moment it shows Stable and low-grade without any cortical collapse. Pelvic CT is also significant for stable chronic bone infarcts in subtrochanteric femurs. Needs follow up at [place] with Dr. Dave Ibrahim. Type 2 Diabetes mellitus He is on Diabetic diet with Accu-Chek and NovoLog sliding scale before meals and bedtime. Patient claims he was on metformin and glipizide confirmed with records from PCP. At discharge continued metformin 500mg BID, Glipizide 5mg daily -- of note HbA1C 5.0 Hyperlipidemia Continue Atorvastatin 10 mg daily Code full DVT - Alps (patient's platelet count is dropping on heparin) Allergies: Coded Allergies: No Known Allergies (12/17/16) Disposition Summary Disposition Principal Diagnosis: Sickle cell vaso occlussive crisis Additional Diagnosis: Type 2 diabetes Discharge Disposition: home or self care Discharge Instructions General Discharge Information Code Status: Full Code Patient's Diet: regular diet Patient's Activity: activity as tolerated Follow-Up Instructions/Appts: Please follow up with to establish care in a week Please follow up with Dr.John Ibrahim at [facility] Any inability to walk/limping, severe hip pain needs immediate medical attention. Medications at Discharge Discharge Medications: Continue taking these medications: Oxycodone HCl (Oxycodone HCl) 30 MG TABLET 1 Tablet ORAL As Directed as needed for PAIN Comments: LAST GIVEN 02/18/17 @ 0550 Folic Acid (Folic Acid) 1 MG TABLET 1 Tablet ORAL DAILY Comments: LAST GIVEN 02/18/17 @ 1014 Cholecalciferol (Vitamin D3) (Vitamin D) 1,000 UNIT TABLET 1 Tablet ORAL DAILY Comments: LAST GIVEN 02/18/17 @ 1014 Metformin HCl (Metformin HCl) 500 MG TABLET 1 Tablet ORAL TWICE DAILY Glipizide (Glipizide ER) 5 MG TAB.ER.24 1 Tablet ORAL DAILY Comments: NOT GIVEN IN HOSPITAL Atorvastatin Calcium (Atorvastatin Calcium) 10 MG TABLET 1 Tablet ORAL DAILY Comments: NOT GIVEN IN HOSPITAL Start taking the following new medications: Oxycodone HCl (Oxycontin) 30 MG TAB.ER.12H 1 Tablet ORAL TWICE DAILY Qty = 20 No Refills Comments: LAST GIVEN 02/18/17 @ 0550 Copies To: ЮЛИЯ VICTOR,B Attending MD Review Statement Documenting Attending: JAELYN PEÑA MD
== END 2017-02-18 14:59 | DRG 662 ==
LOC: ERH 17:54 → 2NB 20:35 → ERHI 20:35 → 2NB 20:35 → ENRESERV 20:58 → ENTRNSPT 21:28 → 2NB 22:31 → CMPTRNSPT 22:44 → ENPENDDIS 02-18 11:42 → 2NB 02-18 14:59
PROVIDERS: Internal Medicine; Physician Assistant Medical; Student in an Organized Health Care Education/Training Program; ADMIT Student in an Organized Health Care Education/Training Program
DX: D57.00 Hb-SS disease with crisis, unspecified (principal); M90.5 Osteonecrosis in diseases classified elsewhere; D73.5 Infarction of spleen; E11.9 Type 2 diabetes mellitus without complications; E78.5 Hyperlipidemia, unspecified; I10 Essential (primary) hypertension; F17.200 Nicotine dependence, unspecified, uncomplicated; Z79.84 Long term (current) use of oral hypoglycemic drugs
CPT/HCPCS: 2NBSP; 83036; 36415; 80307; 81003; 82436; 93005; 93010; 93970; J1170; J1644; J1650; J2405; J3250; J3490; J7042

== ENCOUNTER 2018-03-01 19:47 | Emergency (ER) | payer OTHER ==
[~2018-03-01 19:47] MED LIST changes: +ATORVASTATIN CA10 M1 PO; +FOLIC ACID1 M1 PO; +GLIPIZIDE ER5 M1 PO; +METFORMIN HCL500 M3 PO; +OXYCODONE HCL5 M2 PO; +OXYCONTIN10 M1 PO; +OXYCONTIN30 M1 PO; +VITAMIN D1000 UNIT PO
[2018-03-01 20:39] LABS: ABSOLUTE BASOPHIL COUNT 0.1 /CUMM (0.0-0.2); ABSOLUTE EOSINOPHIL COUNT 0.2 /CUMM (0.0-0.7); ABSOLUTE GRANULOCYTE CT 5.1 /CUMM (1.4-6.5); ABSOLUTE LYMPH COUNT 1.9 /CUMM (1.2-3.4); ABSOLUTE MONOCYTE COUNT 0.3 /CUMM (0.10-0.60); BASOPHIL % 0.7 % (0.0-2.0); EOSINOPHIL % 2.5 % (0-5); GRANULOCYTE % 68.3 % (42.2-75.2); MEAN CORPUSCULAR HGB 23.4 PG (27.0-31.0); MEAN CORPUSCULAR HGB CONC 31.7 G/DL (33.0-37.0); MEAN CORPUSCULAR VOLUME 73.6 FL (80.0-94.0); MEAN PLATELET VOLUME 9.1 FL (7.4-10.4); PLATELET COUNT 137 /CUMM (130-400); RBC DISTRIBUTION WIDTH 17.4 % (11.5-14.5); RED BLOOD CELL CT 4.21 /CUMM (4.70-6.10); WHITE BLOOD CELL COUNT 7.5 /CUMM (4.8-10.8)
--- NOTE | 2018-03-01 20:49 | ED GENERAL ADULT ---
History of Present Illness General Chief Complaint: General Adult Stated Complaint: HIGH BLOOD SUGAR <500 Source: patient Exam Limitations: no limitations Vital Signs & Intake/Output Vital Signs & Intake/Output Vital Signs Date Time Temp Pulse Resp B/P B/P Pulse O2 O2 Flow FiO2 Mean Ox Delivery Rate 03/01 2219 98.2 90 18 125/73 100 Room Air 03/013 Room Air 03/01 2030 122/75 07 1954 98.0 100 16 112/75 98 Room Air Allergies Coded Allergies: No Known Allergies (09/12/17) Reconcile Medications Atorvastatin Calcium 10 MG TABLET 1 TAB PO DAILY cholesterol (Reported) Cholecalciferol (Vitamin D3) (Vitamin D) 1,000 UNIT TABLET 1 TAB PO DAILY SUPPLEMENT (Reported) Folic Acid 1 MG TABLET 1 TAB PO DAILY SUPPLEMENT (Reported) Glipizide (Glipizide ER) 5 MG TAB.ER.24 1 TAB PO DAILY blood sugars (Reported ) Metformin HCl 500 MG TABLET 1 TAB PO BID blood sugars (Reported) Oxycodone HCl 30 MG TABLET 1 TAB PO AD PRN PAIN (Reported) Oxycodone HCl 30 MG TABLET 1 TAB PO BID PRN sickle cell pain Oxycodone HCl 5 MG CAPSULE 1 CAP PO Q6P PRN PAIN Oxycodone HCl (Oxycontin) 30 MG TAB.ER.12H 1 TAB PO BID pain Triage Note: PT TO TRIAGE C/O ELEVATED BLOOD SUGAR AND SICKLE CELL BODY PAIN. HX OF DIABETES AND SICKLE CELL. BS IN TRIAGE >500. PT C/O PAIN, HEADACHE, BLURRY VISION. A/O. Triage Nurses Notes Reviewed? yes Onset: Gradual Duration: day(s): Timing: constant HPI: 37-year-old male with a history of diabetes, sickle cell anemia, hypertension, hyperlipidemia presenting with hyperglycemia and pain to his right shoulder and bilateral knees over the past few days. Patient initially noticed his blood glucose levels were over 500 several days ago, uses metformin and glipizide, and has been taking them as prescribed, but reports his diet has been poor with high carb and sugar intake. Since he has noticed his hyperglycemia he endorses polyuria and feeling dehydrated. He had a headache with blurry vision a few days ago that has since resolved. Now with extremity pain over the past 1-2 days that feels like his usual sickle cell pain. Has been using 30mg oxycodone TID at home without relief. Denies fevers, chest pain, shortness of breath, joint swelling. Past History Travel History Traveled to [place] past 21 day No Medical History Any Pertinent Medical History? see below for history Neurological: NONE EENT: NONE Cardiovascular: hypertension, hyperlipidemia Respiratory: NONE Gastrointestinal: NONE Hepatic: NONE Renal: NONE Musculoskeletal: NONE Psychiatric: NONE Endocrine: diabetes Blood Disorders: sickle cell disease Surgical History Surgical History: none Psychosocial History What is your primary language Hong Konger Tobacco Use: Current Daily Use Daily Tobacco Use Amount/Type: => 5 Cigarettes daily ETOH Use: occasional use Family History Hx Contributory? No Review of Systems Review of Systems Constitutional: Reports: no symptoms. EENTM: Reports: see HPI. Respiratory: Reports: no symptoms. Cardiovascular: Reports: no symptoms. GI: Reports: no symptoms. Genitourinary: Reports: see HPI. Musculoskeletal: Reports: see HPI. Skin: Reports: no symptoms. Neurological/Psychological: Reports: see HPI. Hematologic/Endocrine: Reports: no symptoms. Immunologic/Allergic: Reports: no symptoms. Physical Exam Physical Exam General Appearance: well developed/nourished, no apparent distress, alert, awake , comfortable Head: atraumatic, normal appearance Eyes: Bilateral: normal appearance. Neck: normal inspection Respiratory: normal breath sounds, lungs clear Cardiovascular: regular rate/rhythm Gastrointestinal: soft, non-tender Back: normal inspection Extremities: on exam of the affected joints there is no erythema, edema, or increased warmth. All have unrestricted ROM. Sensation intact. Motor strength 5/ 5. Distal pulses 2+. Neurologic/Psych: awake, alert, oriented x 3, normal gait, normal mood/affect Skin: intact, normal color, warm/dry Core Measures ACS in differential dx? No CVA/TIA Diagnosis: No Sepsis Present: No Sepsis Focused Exam Completed? No Progress Differential Diagnoses I considered the following diagnoses in my evaluation of the patient: [ Hyperglycemia versus DKA versus HHS versus dehydration versus sickle cell crisis , low concern for acute chest syndrome] Plan of Care: Orders Procedure Date/time Status Add-on Test (ER Only) 03/01 2049 Active Add-on Test (ER Only) 03/01 2023 Active HEPATIC FUNCTION PANEL 03/01 2017 Complete MIXED VENOUS BLOOD GAS (GEN) 03/01 2001 Active URINALYSIS 03/01 2001 Complete RETICULOCYTE COUNT 03/01 2001 Complete MAGNESIUM 03/01 2001 Complete CBC WITHOUT DIFFERENTIAL 03/01 2001 Complete BASIC METABOLIC PANEL 03/01 2001 Complete Laboratory Tests 03/01/188: Urine Color STRAW, Urine Clarity CLEAR, Urine pH 6.0, Ur Specific [place] <= 1.005, Urine Protein NEG, Urine Ketones NEG, Urine Nitrite NEG, Urine Bilirubin NEG, Urine Urobilinogen 0.2, Ur Leukocyte Esterase NEG, Ur Microscopic EXAM NOT REQUIRED, Urine Hemoglobin NEG, Urine Glucose >=1000 H 03/01/18 2017: Anion Gap 12, Estimated GFR > 60, BUN/Creatinine Ratio 20.0, Glucose 561 *H, Calcium 9.5, Magnesium 1.6, Total Bilirubin 1.1, Direct Bilirubin 0.2, AST 20, ALT 18 L, Alkaline Phosphatase 49, Total Protein 6.9, Albumin 4.1, CBC w Diff NO MAN DIFF REQ, RBC 4.21 L, MCV 73.6 L, MCH 23.4 L, MCHC 31.7 L, RDW 17.4 H, MPV 9.1, Gran % 68.3, Lymphocytes % 24.8, Monocytes % 3.7, Eosinophils % 2.5, Basophils % 0.7, Absolute Granulocytes 5.1, Absolute Lymphocytes 1.9, Absolute Monocytes 0.3, Absolute Eosinophils 0.2, Absolute Basophils 0.1, Retic Count 2.88 H Initial blood glucose was over 500, no evidence of DKA on labs, labs showed hyponatremia to 129 and hypochloremia. Given 3 L of normal saline, and 4 units of regular insulin. Repeat glucose was in the 400s, but the patient had eaten while in the emergency department. Was given an additional 3 units of insulin and repeat glucose was in the 300s. Instructed to continue his metformin and glipizide as prescribed, and to follow up with his primary care provider for reevaluation of his diabetes regimen. Patient reports improvement in his extremity pain after morphine and IV fluids. His labs show a reticulocyte count of 2.88. Bilirubin is within normal limits, low concern for severe sickle cell crisis requiring hospitalization. Likely had dehydration fro hyperglycemia leading to mild sickle cell pain. Low concern for acute chest, has no chest pain or shortness of breath. Patient feels improved and is requesting to be discharged home. He will follow up with his gambling broker in [place]. Given strict return precautions. Initial ED EKG: none Departure Departure Disposition: HOME OR SELF CARE Condition: Stable Clinical Impression Primary Impression: Hyperglycemia Secondary Impressions: Sickle cell pain crisis Referrals: Patient Has No Primary Care Dr (PCP/Family) Additional Instructions: Take your metformin and glipizide as instructed. Follow-up with your primary care provider and her gambling broker for reevaluation. Return to the emergency department for any new or worsening symptoms. Departure Forms: Customer Survey General Discharge Information Critical Care Note Critical Care Note Critical Care Time: non-applicable
[2018-03-01 22:19] VITALS: BP 125/73
== END 2018-03-01 23:22 ==
LOC: ERH 19:47
PROVIDERS: Physician Assistant
DX: E11.65 Type 2 diabetes mellitus with hyperglycemia (principal); D57.00 Hb-SS disease with crisis, unspecified; I10 Essential (primary) hypertension; F17.210 Nicotine dependence, cigarettes, uncomplicated
CPT/HCPCS: 81003; 96372; 96374; 96376; J1815